=== PATIENT | male | born 1945 | race Caucasian/White ===

== ENCOUNTER 2022-01-28 20:15 | Emergency (ER) | payer MEDICARE, SELFPAY ==
[2022-01-28] VITALS (13 sets, daily range): BP systolic 109–168; BP diastolic 69–82; PULSE 80–107; RESP 15–26; TEMP 37–37.9; O2SAT 95–99
--- NOTE | ~2022-01-28 | CT_ITS ---
EXAMINATION: CTA brain carotid DATE: 01/28/2022 22:15 INDICATION: Left arm weakness. TECHNIQUE: Computed tomographic angiography (CTA) of the head was performed without and with 100 mL O mnipaque-350 intravenous contrast. CTA of the neck was performed with intravenous contrast. Automated exposure control and iterative reconstruction technique were employed. The dose-length product was 1 084.10 mGy-cm. Maximum intensity projection and volume rendered 3D-reconstructions were created by rashawn heck technologist on a separate workstation. COMPARISON: Head CT 01/28/2022 FINDINGS: HEAD CTA: There is no intracranial hemorrhage, acute infarction, or abnormal intracranial mass lesion . The ventricles are normal in size. There is mucosal thickening in the paranasal sinuses. The orbits are normal. There is a small right mastoid effusion. Right vertebral artery is dominant. There is no significant stenosis of basilar artery or the posterior cerebral arteries. The posterior communicati ng arteries are normal. There is no significant stenosis of the intracranial internal carotid arterie s or anterior or middle cerebral arteries. 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 NECK CTA: There is mild emphysema. There are no pathologically enlarged lymph nodes. There is no sign ificant stenosis of the vertebral arteries. There is plaque in the proximal internal carotid arteries . There is 0% stenosis of the proximal right internal carotid artery relative to normal distal artery lumen diameter (NASCET criteria). There is 23% stenosis of the proximal left internal carotid artery relative to normal distal artery lumen diameter. There is severe cervical spondylosis. IMPRESSION: 1. 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 2. 0% stenosis of the proximal right internal carotid artery relative to normal distal artery lumen d iameter (NASCET criteria). 3. 23% stenosis of the proximal left internal carotid artery relative to normal distal artery lumen d iameter. 4. Mild emphysema. Reviewed, dictated and finalized at location A. SURVEYING SURVEY WORKER IMPRESSION: 1. 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 2. 0% stenosis of the proximal right internal carotid artery relative to normal distal artery lumen diameter (NASCET criteria). 3. 23% stenosis of the proximal left internal carotid artery relative to normal distal artery lumen diameter. 4. Mild emphysema.
--- NOTE | ~2022-01-28 | CT_ITS ---
EXAMINATION: CT brain wo con DATE: 01/28/2022 20:38 INDICATION: left-sided weakness. RIGHT FRONTAL HEADACHE. . TECHNIQUE: Computed tomography (CT) of the head was performed without intravenous contrast. The mA wa s adjusted according to patient size. Iterative reconstruction technique was employed. The dose-lengt h product was 605.33 mGy-cm. COMPARISON: None FINDINGS: No acute intracranial hemorrhage or extra-axial fluid collection. No hydrocephalus, mass, or herniation. No acute ischemic infarct. Unremarkable dural venous sinus attenuation. No acute osseous abnormality. Mucosal thickening and mild aerated secretions in the right maxillary sinus. Trace right mastoid effu letha. Mucosal thickening in the ethmoid air cells. The remaining aerated spaces are clear. Moderate atrophy and chronic white matter change. Atherosclerotic intracranial calcification. IMPRESSION: No acute intracranial process. Right maxillary sinus findings may reflect acute sinusitis in the appr opriate clinical context. Trace right mastoid effusion. Reviewed, dictated and finalized at location K. LY ASSISTANT IMPRESSION: No acute intracranial process. Right maxillary sinus findings may reflect acute sinusitis in the appropriate clinical context. Trace right mastoid effusion.
--- NOTE | 2022-01-28 20:21 | ECG_ITS ---
Measurements Intervals [place] Rate: 90 P: 61 OK: 157 QRS: -35 QRSD: 81 T: 48 QT: 361 QTc: 444 Interpretive Statements SINUS RHYTHM ATRIAL AND VENTRICULAR PREMATURE COMPLEXES LEFT AXIS DEVIATION INCOMPLETE RIGHT BUNDLE BRANCH BLOCK LOW QRS VOLTAGE IN PRECORDIAL LEADS BASELINE ARTIFACT- I, II, III, AVR, AVL, AVF, V1-V6 BORDERLINE ECG NO PREVIOUS ECG AVAILABLE FOR COMPARISON Electronically Signed On 01-29-2022 6:49:12 [employer] GRINDER by Don Silvestre D.O.
--- NOTE | 2022-01-28 20:41 | ED.NEUROSD ---
HPI - Neuro Symptoms/Deficit General Chief Complaint: Suspected CVA Stated Complaint: Neuro Symptoms Time Seen by Provider: 01/28/22 20:19 Source: patient, EMS and RN notes reviewed Mode of arrival: EMS Limitations: no limitations History of Present Illness Onset (ago): unknown ( sometime this morning after breakfast) Timing confirmed by: other ( girlfriend) Location: left arm History of same: No Severity: moderate Quality: weak, tingling and constant Relieving factors: none Exacerbating factors: none Context: gradual onset On Anticoagulants: No Associated symptoms: headaches Treatments Prior to Arrival: none Related Data Home Medications Medication Instructions Recorded Confirmed allopurinol 300 mg tablet 300 mg PO DAILY 01/28/22 01/29/22 amlodipine 10 mg tablet 10 mg PO DAILY 01/28/22 01/29/22 atorvastatin 80 mg tablet 80 mg PO HS 01/28/22 01/29/22 clopidogrel 75 mg tablet 75 mg PO DAILY 01/28/22 01/29/22 enalapril maleate 20 mg tablet 40 mg PO DAILY 01/28/22 01/29/22 metoprolol succinate 50 mg 25 mg PO DAILY 01/28/22 01/29/22 tablet,extended release 24 hr omeprazole 40 mg capsule,delayed 40 mg PO DAILY 01/28/22 01/29/22 release tamsulosin 0.4 mg capsule 0.8 mg PO DAILY 01/28/22 01/29/22 aspirin 81 mg tablet 81 mg PO DAILY 01/29/22 01/29/22 Allergies Allergy/AdvReac Type Severity Reaction Status Date / Time Penicillins Allergy Unknown Verified 01/28/22 21:04 Review of Systems Review of Systems: All systems reviewed & are unremarkable except as noted in HPI and below PMFSH Past Medical History Medical History BPH (benign prostatic hyperplasia) Coronary artery disease CVA (cerebral vascular accident) GERD (gastroesophageal reflux disease) Gout Hyperlipidemia Hypertension Surgical History Surgical History Stented coronary artery Family History Family History Other Unknown family medical history Social History Social History Smoking packs per day: 1 Smoking cigarettes per day: 20.0 Smoking status: Current every day smoker Tobacco type: cigarettes Alcohol intake: current Drinks per week: 21 Alcohol use details: 2 beers daily and 2 whiskys daily Substance use: never Substance use type: does not use Spiritual care concerns: No Exam Const: General: cooperative, healthy appearing, comfortable, no acute distress, alert, awake and Physically active Nutritional Appearance: average body habitus Orientation/consciousness: patient oriented x3 Limitations: no limitations HENMT: Head: normal to inspection and normocephalic Ears: hearing grossly normal bilaterally and external ears normal Face/Nose/Sinus: Normal external nose present and Abnormal external nose present Mouth: Yes Normal oral and palatal mucosa present, Yes tongue normal and Yes moist mucous membranes Throat: uvula midline Eyes: General: appearance normal, both eyes and all related structures Eyelids: eyelids normal Conjunctivae: conjunctivae normal Sclera: sclerae normal Pupils: Equal, round and reactive pupils present EOM: EOMs intact bilaterally Neck: Neck: normal visual inspection, no lymphadenopathy, trachea midline, supple and other ( No nuchal rigidity) Carotids: normal carotid upstroke and no bruits Resp: Effort & Inspection: normal respiratory effort and able to speak in complete sentences Auscultation: clear to auscultation bilaterally Cardio: Rate: regular rate Rhythm: regular rhythm Heart sounds: no murmurs GI: Inspection: normal to inspection GI Palp: Yes Soft to palpation and No Tenderness to palpation present (GI) Auscultation: normal bowel sounds Back/Spine/Pelvis: Cervical Spine: cervical muscular tenderness (right C3-4), cervical spasm (right) and Cer
[2022-01-28] MEDS: ASPIRIN 81 MG CHEWABLE TABLET 324 MG PO (21:05)
[2022-01-28 21:10] LABS: Basophils Absolute Auto 0.02 K/mm3 (0.00-0.10); Basophils Percent Auto 0.2 % (0.0-1.0); Eosinophils Absolute Auto 0.03 K/mm3 (0.02-0.50); Eosinophils Percent Auto 0.4 % (1.0-6.0); Hematocrit 28.3 % (37.0-46.0); Hemoglobin 9.7 g/dL (12.4-15.3); Immature Granulocyte Absolute 0.02 K/mm3 (0.00-0.00); Immature Granulocyte Percent A 0.2 % (0.0-0.0); Lymphocytes Absolute Auto 1.13 K/mm3 (1.10-4.50); Lymphocytes Percent Auto 13.2 % (18.0-42.0); Mean Corpuscular HGB Conc 34.3 g/dL (32.0-36.0); Mean Corpuscular Hemoglobin 31.5 pg (27.0-31.0); Mean Corpuscular Volume 91.9 fL (78.0-102.0); Mean Platelet Volume 9.4 fl (8.7-11.0); Monocytes Absolute Auto 0.66 K/mm3 (0.10-0.90); Monocytes Percent Auto 7.7 % (2.0-11.0); Neutrophils Absolute Auto 6.7 K/mm3 (1.7-7.2); Neutrophils Percent Auto 78.3 % (50.0-70.0); Platelet Count Result 242 K/mm3 (150-420); Red Blood Count 3.08 M/mm3 (4.70-6.10); Red Cell Distribution Width 14.6 % (11.6-14.4); White Blood Count 8.5 K/mm3 (4.8-10.8)
[2022-01-28 21:24] LABS: Partial Thromboplastin Time 26.2 SEC (23.90-30.70)
[2022-01-28 21:27] LABS: Alanine Aminotransferase 8 U/L (16-63); Albumin Level 3.4 g/dL (3.4-5.0); Alkaline Phosphatase 75 U/L (46-116); Anion Gap 13 mmol/L (8-16); Aspartate Amino Transferase 35 U/L (15-37); Bilirubin,Total 0.4 mg/dL (0.00-1.00); Blood Urea Nitrogen 9 mg/dL (7-18); Calcium 8.5 mg/dL (8.5-10.1); Carbon Dioxide 25 mmol/L (21-32); Chloride 95 mmol/L (98-108); Estimated Glomerular Filt Rate > 60; Glucose 116 mg/dL (70-99); Osmolality Calculated 275 mOsm/kg (285-295); Potassium 2.9 mmol/L (3.5-5.1); Sodium 133 mmol/L (136-145); Total Protein 6.6 g/dL (6.4-8.2); Troponin I 40.2 ng/L (0.00-60.4)
[2022-01-28 21:37] LABS: Lactic Acid Reflex 1.1 mmol/L (0.4-2.0)
[2022-01-28] MEDS: KETOROLAC 30 MG/ML VIAL (*BKC) IV PUSH (21:42)
[2022-01-28] MEDS: LORazepam INJ (*CRX) 2 MG/ML VIAL IV PUSH (22:00)
--- NOTE | 2022-01-28 22:00 | PC.NURSE ---
Call received fro information technology technician that pt is having seizure, call placed to ERP, order obtained for Ativan, Upon arriving to [place], pt is postictal, has snoring respirations, Dr Posada in to assess, ativan given as per order. Per information technology technician, pt had seizure lasting approx 30sec.
[2022-01-28 22:12] LABS: Appearance Urine Clear (Clear); Bilirubin Urine Negative (Negative); Blood Urine Negative (Negative); Glucose Urine UA Negative (Negative); Ketones Urine 1+ (Negative); Leukocyte Esterase Ur Negative LEU/UL (Negative); Nitrate Urine Negative (Negative); Protein Urine 1+ (Negative); Urobilinogen Urine 0.2 mg/dL (0.2-1.0)
[2022-01-28 22:22] LABS: Add Urine Microscopic? YES; Color Urine Light Yellow (Yellow); RBC Urine 0-2 /hpf (0-2); WBC Urine 0-3 /hpf (0-3)
--- NOTE | 2022-01-28 22:22 | PC.NURSE ---
ERP phones RN and orders a 40mEq of Potassium in 1L of 0.9% NSS to run at 100mls/hr. RN reviews the order by reading back to ERP. ERP confirms order.
[2022-01-28] MEDS: KCL 20 MEQ/SW 100 ML 100 ML 50 MEQ IVPB (22:35)
--- NOTE | 2022-01-28 22:41 | PC.NURSE ---
Call placed to [facility] for neurologist, spoke to maynor Webber. Dr Diana hickman for neuro, will awit call back.
--- NOTE | 2022-01-28 22:54 | PC.NURSE ---
Call back from Maxime Webber. and call back from Dr Ortega, hospitalist, speaking to Dr Posada, accepts for transfer. Order received that Dr Ortiz would like Keppra 750mg IVPB given before transfer. ERP informed.
--- NOTE | 2022-01-28 23:00 | PC.NURSE ---
Pt remains somewhat sedated, is able to awaken to name and verbal stimulation. VSS, Monitor shows SR. Call back from Lawanda candelario bed assignment for report.
--- NOTE | 2022-01-28 23:25 | PC.NURSE ---
Call paged for [facility] for pt transfer, report to [facility] given, pt remains stable, sleeping, no distress noted, no further seizure activity.
--- NOTE | 2022-01-28 23:56 | PC.NURSE ---
Pt remains confused a t this time, trying to take off his clothes, will follow some commands but is more confused, VSS, report to EMS for transfer given.
--- NOTE | 2022-02-09 14:05 | PC.NURSE ---
final blood culture results x2 : no growth after 5 days. no action needed
== END 2022-01-28 23:57 | disposition short-term general hospital (02) ==
PROVIDERS: Emergency Provider Emergency Medicine
DX: I63.9 Cerebral infarction, unspecified (principal); R56.9 Unspecified convulsions; E87.6 Hypokalemia; I25.10 Atherosclerotic heart disease of native coronary artery without angina pectoris; K21.9 Gastro-esophageal reflux disease without esophagitis; E78.5 Hyperlipidemia, unspecified; I10 Essential (primary) hypertension; F17.200 Nicotine dependence, unspecified, uncomplicated
CPT/HCPCS: 36415; 70450; 70496; 70498; 80053; 81001; 83605; 84484; 85025; 85610; 85730; 87040; 93005; 96365; 96367; 96375; 99285; A9270; J1885; J1953; J2060; J3480; Q9967

== ENCOUNTER 2022-01-29 00:33 | Observation (INO) | payer MEDICARE, SELFPAY ==
[2022-01-29] VITALS (12 sets, daily range): BP systolic 103–143; BP diastolic 57–99; PULSE 61–86; RESP 16–20; TEMP 36.3–36.8; O2SAT 97–100; BMI 24.5
--- NOTE | 2022-01-29 | ECHO_ITS ---
Patient Info Name: Marcus Weller Age: 77 years : 1945 Gender: Male Ht: 69 in Wt: 165 lbs BSA: 1.92 m2 HR: 90 bpm BP: 103 / 57 mmHg Exam Date: 01/29/2022 1:25 PM Exam Location: [facility] Pulmonary Patient Status: Outpatient Admit Date: 01/29/2022 Staff Ordering Physician: Maricel Her MD Life Skills Coordinator: Fawad Salazar, MALIK, RT Attending Provider: Hannah Ortega DO Exam Type: CA echo doppler w bubble study Study Info Complete two-dimensional, color flow and Doppler transthoracic echocardiogram is performed. Summary 1. Complete two-dimensional, color flow and Doppler transthoracic echocardiogram is performed. 2. Left ventricular systolic function is normal, estimated at 50-55%. 3. There is mildly increased left ventricular wall thickness. 4. The left ventricular diastolic function is grade I diastolic dysfunction. 5. Right ventricular systolic function is normal. 6. The interatrial septum appears to be aneurysmal. No color flow is seen across the septum. Bubble study is negative. 7. The posterior mitral annulus has severe calcification. 8. There is trace mitral valve regurgitation. 9. There is mild to moderate tricuspid valve regurgitation. Left Ventricle Left ventricular chamber dimension is normal. Left ventricular systolic function is normal, estimated at 50-55%. There is mildly increased left ventricular wall thickness. The left ventricular diastolic function is grade I diastolic dysfunction. Global longitudinal strain is -14 %. Right Ventricle Right ventricular chamber dimension is normal. Right ventricular systolic function is normal. Left Atria Left atrial chamber dimension is normal. Right Atria Right atrial chamber dimension is normal. Atrial Septum The interatrial septum appears to be aneurysmal. No color flow is seen across the septum. Bubble study is negative. Aortic Valve The aortic valve is not well visualized. There is no aortic valve stenosis. There is no aortic valve regurgitation. There is mild aortic valve calcification. Pulmonic Valve The pulmonic valve is not well visualized. Mitral Valve The posterior mitral annulus has severe calcification. The mitral valve has thickened leaflets. There is no mitral valve stenosis. There is trace mitral valve regurgitation. Tricuspid Valve The tricuspid valve leaflets are normal. There is no significant tricuspid valve stenosis. There is mild to moderate tricuspid valve regurgitation. Pericardium/Pleural There is no pericardial effusion. Inferior Vena Cava Normal inferior vena cava with >50% collapse upon inspiration consistent with normal right atrial pressure. Aorta The aortic root size at the sinus of Valsalva is normal. Left Ventricular Outflow Tract Name Value Normal LVOT 2D LVOT Diameter 2.0 cm LVOT Doppler LVOT Peak Gradient 6 mmHg LVOT Mean Gradient 3 mmHg LVOT VTI 27 cm LVOT VTI/AV VTI Ratio 0.9 LVOT Stroke Volume 86 ml LVOT CO
--- NOTE | ~2022-01-29 | MR_ITS ---
. EXAMINATION: MR brain/brain stem wo/w con DATE: 01/29/2022 10:44 INDICATION: Left hemiparesis. Seizure. TECHNIQUE: Magnetic resonance imaging (MRI) of the brain and brainstem was performed without and with 15 mL MultiHance intravenous contrast. COMPARISON: Head CTA 01/28/2022 FINDINGS: There are scattered areas of nonspecific increased T2-weighted signal intensity in the cere bral white matter, which is within normal limits for the patient's age. There is no intracranial hemo rrhage, acute infarction, or abnormal intracranial mass lesion. The ventricles are normal in size. Th e orbits are normal. There is mucosal thickening in the paranasal sinuses. There is a trace right mas toid effusion. IMPRESSION: 1. Normal aging brain. 2. The small aneurysm seen on the recent CTA is not visible by MRI. Reviewed, dictated and finalized at location A. [employer]
--- NOTE | 2022-01-29 00:38 | ADMGEN ---
This patient, Marcus Weller, was admitted to Medical Room 250-01. Patient/family oriented to hospital policies and general routines including ID bracelet, bed and alarms, visiting hours, pain management, procedures, bathroom and other care routines, personal items, smoking policy, room service/diet, and visiting hours. Information on how to activate the Rapid Response Team has been discussed. Patient/Family are encouraged to report perceived risks to care and to ask questions if they do not understand what they are told or what they should do.
--- NOTE | 2022-01-29 01:55 | PM.IMHP ---
H&P: HPI History of Present Illness Date/Time: 01/29/22 01:55 Chief Complaint: Left-sided weakness Narrative: Patient is a 77-year-old male with past medical history of CAD, GERD, BPH, essential hypertension, hyperlipidemia, gout, possible history of CVA presents to ED with complaints of left-sided weakness. I saw patient after having a seizure and receiving 2 mg IV Ativan, he was unable to provide any history at this time. History is obtained through chart review. Family notes last known well early 01/28/2022. Progressively got weaker and question left sign prompting him to come to the ED for further evaluation. History is limited as patient is unable to participate considering his somnolence. In the ED: I discussed with ED provider and patient appeared to have left gaze preference, left-sided weakness, left arm contracture. CT head, CTA head and neck all negative for acute finding. While obtaining CT imaging patient had a witnessed seizure and given 2 mg IV Ativan. Patient has no seizure history. Neurology was consulted recommendation for brain MRI, Keppra 750 mg IV, transfer to [facility] for [facility]. Patient was found to have hypokalemia potassium 2.9 given 40 mg IV potassium. For the presumed stroke patient was given 324 aspirin. Patient to be admitted for observation for acute seizure secondary to possible CVA. Review of Systems Review of Systems: Unable to obtain due to patient somnolent after ativan PMFSH Past Medical History Medical History BPH (benign prostatic hyperplasia) Coronary artery disease CVA (cerebral vascular accident) GERD (gastroesophageal reflux disease) Gout Hyperlipidemia Hypertension Surgical History Surgical History Stented coronary artery Family History Family History Other Unknown family medical history Social History Social History Smoking packs per day: 1 Smoking cigarettes per day: 20.0 Smoking status: Current every day smoker Tobacco type: cigarettes Alcohol intake: current Drinks per week: 21 Alcohol use details: 2 beers daily and 2 whiskys daily Substance use: never Substance use type: does not use Spiritual care concerns: No Meds Home Medications and Allergies Home Medications Medication Instructions Recorded Confirmed Type allopurinol 300 mg tablet 300 mg PO DAILY 01/28/22 01/29/22 History amlodipine 10 mg tablet 10 mg PO DAILY 01/28/22 01/29/22 History atorvastatin 80 mg tablet 80 mg PO HS 01/28/22 01/29/22 History clopidogrel 75 mg tablet 75 mg PO DAILY 01/28/22 01/29/22 History enalapril maleate 20 mg tablet 40 mg PO DAILY 01/28/22 01/29/22 History metoprolol succinate 50 mg 25 mg PO DAILY 01/28/22 01/29/22 History tablet,extended release 24 hr omeprazole 40 mg capsule,delayed 40 mg PO DAILY 01/28/22 01/29/22 History release tamsulosin 0.4 mg capsule 0.8 mg PO DAILY 01/28/22 01/29/22 History aspirin 81 mg tablet 81 mg PO DAILY 01/29/22 01/29/22 History Allergies Allergy/AdvReac Type Severity Reaction Status Date / Time Penicillins Allergy Unknown Verified 01/28/22 21:04 Vital Signs Vital Signs - 24 hr 01/29/22 00:34 Temperature 36.7 C Pulse Rate 86 Respiratory Rate 18 Blood Pressure 129/99 H Pulse Oximetry 99 Exam Narrative: - GENERAL: Frail thin male in no acute distress. - EYES: EOMI. Anicteric. - HENT: Dry oral mucosa - LUNGS: Clear to auscultation bilaterally, no wheezing, rhonchi, or rales. - CARDIOVASCULAR: Regular rate and rhythm. - ABDOMEN: Soft, non-tender and non-distended. - EXTREMITIES: No edema. Peripheral pulses 2+. - NEUROLOGIC: Essential tremor when trying to move blanket to cover himself. appears to be moving all extremities, difficult to asse
[2022-01-29] MEDS: SODIUM CHLORIDE 0.9% IV 1,000 ML 100 ML IV CONT (02:34)
[2022-01-29 05:39] LABS: Lactic Acid Reflex 0.7 mmol/L (0.7-2.0)
[2022-01-29 05:40] LABS: Basophils Percent Auto 0.4 % (0.2-1.2); Eosinophils Percent Auto 0.5 % (0-4.4); Hematocrit 26.8 % (42.0-52.0); Hemoglobin 9.2 g/dL (14.0-18.0); Immature Granulocyte Absolute 0.03 K/mm3 (0.00-0.031); Immature Granulocyte Percent A 0.4 % (0-0.5); Lymphocytes Percent Auto 26.1 % (18.3-44.2); Mean Corpuscular HGB Conc 34.3 g/dl (32-36); Mean Corpuscular Volume 90.2 fl (80-100); Mean Platelet Volume 9.7 fl (7.4-10.4); Monocytes Absolute Auto 0.9 K/mm3 (0.1-0.6); Monocytes Percent Auto 11.8 % (2.6-8.5); Neutrophils Absolute Auto 4.4 K/mm3 (1.3-6.7); Neutrophils Percent Auto 60.8 % (45.5-73.1); Platelet Count Result 220 k/mm3 (150-375); Red Blood Count 2.97 M/mm3 (4.6-6.20); Red Cell Distribution Width 14.6 % (11.5-14.5); White Blood Count 7.3 K/mm3 (4.5-10.0)
[2022-01-29 05:49] LABS: LDL Cholesterol Direct 58 mg/dL
[2022-01-29 05:53] LABS: Alanine Aminotransferase 21 U/L (6-50); Albumin Level 3.4 g/dL (3.5-5.1); Alkaline Phosphatase 54 U/L (38-126); Anion Gap 8 mmol/L (8-16); Aspartate Amino Transferase 55 U/L (17-59); Bilirubin,Total 0.5 mg/dL (0.2-1.3); Blood Urea Nitrogen 8 mg/dL (9-20); Calcium 8.4 mg/dL (8.4-10.2); Carbon Dioxide 22 mmol/L (22-30); Chloride 99 mmol/L (98-107); Cholesterol 134 mg/dL (0-200); Estimated CRCL calculation 79 ml/min; Estimated Glomerular Filt Rate > 60; Glucose 98 mg/dL (65-110); HDL Direct 53 mg/dL; Magnesium 0.7 mg/dL (1.6-2.3); Potassium 3.1 mmol/L (3.4-5.0); Sodium 129 mmol/L (137-145); Triglycerides 83 mg/dL (<150)
--- NOTE | 2022-01-29 08:17 | WPDNEURCNPN ---
Assessment and Plan Assessment and plan (1) Left-sided weakness: Code(s): R53.1 - Weakness Status: Acute (2) Seizure disorder as sequela of cerebrovascular accident: Code(s): I69.398 - Other sequelae of cerebral infarction; G40.909 - Epilepsy, unspecified, not intractable, without status epilepticus Status: Acute (3) Smoker: Code(s): F17.200 - Nicotine dependence, unspecified, uncomplicated Status: Acute (4) HLD (hyperlipidemia): Code(s): E78.5 - Hyperlipidemia, unspecified Status: Acute (5) HTN (hypertension): Code(s): I10 - Essential (primary) hypertension Status: Acute (6) CAD (coronary artery disease): Code(s): I25.10 - Atherosclerotic heart disease of [place] coronary artery without angina pectoris Status: Acute Plan Marcus Weller is a 77 year old male with a history of CAD, GERD, BPH, HTN, HLD who presented on 01/28 initially due to left upper extremity weakness, who developed focal seizure while in the emergency room. Seizure could be secondary to stroke. Would recommend complete stroke work-up given patients risk factors. - MRI brain, surface echo w/ bubble study - Check HgbA1c and Lipid panel - Continue ASA 81mg and Plavix 75mg - Start Keppra 500mg BID - Discussed importance of smoking cessation Consult date: 01/29/22 Time Seen: 08:17 Reason for consult: Stroke, seizure HPI: Marcus Weller is a 77 year old male with a history of CAD, GERD, BPH, HTN, HLD who presented on 01/28 initially due to left upper extremity weakness. Patient's last well known is unclear, but sometime on 01/28. He developed left arm tingling and weakness. His family encouraged him to go the the emergency department. His initial blood pressure was in the 160s systolic and EKG showed sinus rhythm. CT was negative for acute process and CTA showed no stenosis in the R ICA but 23% stenosis in the L ICA, but otherwise no occlusion. While in CT patient had a seizure described as left gaze deviation with left upper extremity clonic movement. He was given Ativan 2mg IV. Afterwards he was post-ictal, but about an hour later he became more responsive. Neurology was consulted and he was given a dose of Keppra 750mg IV. Patient is on Asa 81mg and Plavix 75mg as well as Atorvastatin 80mg. He is a daily smoker. There is no prior history of seizure in this patient nor does he have a family history of seizures. Patient does not have any recollection of the events that occurred yesterday. Today he feels pretty close to his baseline. Review of Systems Constitutional: Constitutional: Reports no additional constitutional complaints Eyes: Eyes: Reports no additional eye complaints ENT: Reports system reviewed and no additional complaints, except as documented Cardiovascular: Cardiovascular: Reports no additional cardiovascular complaints Respiratory: Respiratory: Reports no additional respiratory complaints Gastrointestinal: Gastrointestinal: Reports no additional gastrointestinal complaints Genitourinary: Genitourinary: Reports no additional male genitourinary complaints Musculoskeletal: Musculoskeletal: Reports no additional musculoskeletal complaints Integumentary/Breasts: Skin/Breast: Reports system reviewed and no additional complaints, except as docu Neurologic: Reports as per HPI Psychiatric: Psychiatric: Reports no additional psychiatric complaints PMFSH Past Medical History Medical History BPH (benign prostatic hyperplasia) Coronary artery disease CVA (cerebral vascular accident) GERD (gastroesophageal reflux disease) Gout Hyperlipidemia Hypertension Surgical History Surgical History Stented coronary artery Family History Family History Other Unknown family medical history Social History Social Histor
[2022-01-29] MEDS: POTASSIUM CHLORIDE INJ 40 MEQ in SODIUM CHLORIDE 0.9% IV 500 ML 130 MEQ IVPB (08:32)
[2022-01-29] MEDS: ENOXAPARIN 40 MG/0.4 ML SYRINGE SUB-Q (08:33)
[2022-01-29] MEDS: TAMSULOSIN HCL 0.4 MG CAPSULE 0.8 MG PO (08:34)
[2022-01-29] MEDS: ASPIRIN 81 MG ENTERIC TABLET PO (08:34)
[2022-01-29] MEDS: allopurinoL 300 MG TABLET PO (08:34)
[2022-01-29] MEDS: CLOPIDOGREL BISULFATE 75 MG TABLET PO (08:35)
[2022-01-29] MEDS: PANTOPRAZOLE 40 MG TABLET PO ×2 (08:35→17:03)
[2022-01-29] MEDS: levETIRAcetam 500MG/NACL 100ML 500 MG/100 ML BAG 400 MG IVPB ×2 (08:52→20:30)
--- NOTE | 2022-01-29 09:22 | PM.IMPN ---
Progress Note: A&P Assessment and Plan (1) Seizure disorder as sequela of cerebrovascular accident: Code(s): I69.398 - Other sequelae of cerebral infarction; G40.909 - Epilepsy, unspecified, not intractable, without status epilepticus Status: Acute Assessment and Plan: Errol wilson neurology input (2) Left-sided weakness: Code(s): R53.1 - Weakness Status: Acute Assessment and Plan: workup pending aspirin and Plavix Subjective Date/time seen: 01/29/22 09:22 improved Exam Narrative: - GENERAL: Frail thin male in no acute distress. - EYES: EOMI. Anicteric. - HENT: Dry oral mucosa - LUNGS: Clear to auscultation bilaterally, no wheezing, rhonchi, or rales. - CARDIOVASCULAR: Regular rate and rhythm. - ABDOMEN: Soft, non-tender and non-distended. - EXTREMITIES: No edema. Peripheral pulses 2+. - NEUROLOGIC: Essential tremor when trying to move blanket to cover himself. appears to be moving all extremities, difficult to assess as patient is very somnolent after receiving Ativan - PSYCHIATRIC: Sleeping, arousable, unable to assess orientation, did not follow commands - SKIN: No rashes or lesions. Warm. Objective Data Vital Signs Vital Signs: Vital Signs - 24 hr 01/29/22 00:34 01/29/22 03:50 01/29/22 04:13 Temperature 98.1 F 98.2 F Pulse Rate 86 65 Respiratory Rate 18 18 Blood Pressure 129/99 H 103/57 L Pulse Oximetry 99 97 Oxygen Delivery Room Air 01/29/22 04:00 Temperature Pulse Rate 61 Respiratory Rate Blood Pressure Pulse Oximetry Oxygen Delivery Intake/Output Intake/Output: Intake & Output 01/26/22 01/27/22 01/28/22 01/29/22 23:59 23:59 23:59 23:59 Output Total 300 Balance -300 Meds/Results Medications: Active Medications Generic Name Dose Route Start Last Admin Trade Name Freq PRN Reason Stop Dose Admin Acetaminophen 650 mg 01/29/22 01:51 Acetaminophen 325 Mg Tablet PO Q4H PRN Mild Pain (1-3) or Fever Hydrocodone Bitart/Acetaminophen 1 tab 01/29/22 01:51 Hydrocodone/Acetaminophen (*Crx) 5-325 Mg Tablet PO Q4H PRN Moderate Pain (4-6) Al Hydrox/Mg Hydrox/Simethicone 30 ml 01/29/22 01:51 Mag Hydrox/Al Hydrox/Simeth 30 Ml Udc PO QID PRN Dyspepsia Allopurinol 300 mg 01/29/22 08:00 01/29/22 08:34 Allopurinol 300 Mg Tablet PO 300 mg DAILY@0800 RASHAD Administration Aspirin 81 mg 01/29/22 09:00 01/29/22 08:34 Aspirin 81 Mg Enteric Tablet PO 81 mg QAM RASHAD Administration Atorvastatin Calcium 80 mg 01/29/22 02:00 01/29/22 02:44 Atorvastatin 40 Mg Tablet PO Not Given HS RASHAD Clopidogrel Bisulfate 75 mg 01/29/22 09:00 01/29/22 08:35 Clopidogrel Bisulfate 75 Mg Tablet PO 75 mg DAILY RASHAD Administration Enoxaparin Sodium 40 mg 01/29/22 09:00 01/29/22 08:33 Enoxaparin 40 Mg/0.4 Ml Syringe SUB-Q 40 mg DAILY RASHAD Administration Sodium Chloride 1,000 mls @ 100 mls/hr 01/29/22 01:50 01/29/22 02:34 Normal Saline Iv IV CONT 01/29/22 21:49 100 mls/hr .Q10H RASHAD Administration Potassium Chloride 40 meq/ 520 mls @ 130 mls/hr 01/29/22 07:45 01/29/22 08:32 Sodium Chloride IVPB 01/29/22 11:44 130 mls/hr ONCE ONE Administration Levetiracetam 500 mg in 100 mls @ 400 mls/hr 01/29/22 09:00 01/29/22 08:52 Keppra Iv IVPB 400 mls/hr Q12HR RASHAD Administration Lorazepam 2 mg 01/29/22 01:02 Lorazepam Inj (*Crx) 2 Mg/Ml Vial IV PUSH Q2H PRN Seizure Activity Magnesium Hydroxide 30 ml 01/29/22 01:51 Magnesium Hydroxide Susp 30 Ml Udc PO DAILY PRN Constipation Naloxone HCl 0.1 mg 01/29/22 01:51 Naloxone Hcl 0.4 Mg/Ml Vial IV PUSH Q2M PRN Opiate Reversal Ondansetron HCl 4 mg 01/29/22 01:51 Ondansetron Inj 4 Mg/2 Ml Vial IV PUSH Q6H PRN Nausea And Vomiting Pantoprazole Sodium 40 mg 01/29/22 09:00 01/29/22 08:35 Pantoprazole 40 Mg Tablet PO 40 mg
--- NOTE | 2022-01-29 09:32 | PCSTNOTE ---
Please refer to the Bedside Swallow Evaluation in the EMR. Please note, silent aspiration cannot be ruled out at bedside.
[2022-01-29] MEDS: ATORVASTATIN 40 MG TABLET 80 MG PO (20:29)
[2022-01-30] VITALS (8 sets, daily range): BP systolic 106–170; BP diastolic 64–73; PULSE 61–102; RESP 16–20; TEMP 36.2–36.6; O2SAT 97–100
--- NOTE | 2022-01-30 05:24 | PC.NURSE ---
This RN supervised orientee Ainsley Duran and her documentation for this shift.
[2022-01-30 08:15] LABS: Anion Gap 7 mmol/L (8-16); Blood Urea Nitrogen 6 mg/dL (9-20); Carbon Dioxide 26 mmol/L (22-30); Chloride 101 mmol/L (98-107); Estimated CRCL calculation 90 ml/min; Estimated Glomerular Filt Rate > 60; Glucose 94 mg/dL (65-110); Potassium 2.9 mmol/L (3.4-5.0); Sodium 134 mmol/L (137-145)
[2022-01-30] MEDS: levETIRAcetam 500MG/NACL 100ML 500 MG/100 ML BAG 400 MG IVPB ×2 (08:23→20:11)
[2022-01-30] MEDS: PANTOPRAZOLE 40 MG TABLET PO ×2 (08:24→16:32)
[2022-01-30] MEDS: ASPIRIN 81 MG ENTERIC TABLET PO (08:24)
[2022-01-30] MEDS: TAMSULOSIN HCL 0.4 MG CAPSULE 0.8 MG PO (08:24)
[2022-01-30] MEDS: allopurinoL 300 MG TABLET PO (08:24)
[2022-01-30] MEDS: ENOXAPARIN 40 MG/0.4 ML SYRINGE SUB-Q (08:24)
[2022-01-30] MEDS: CLOPIDOGREL BISULFATE 75 MG TABLET PO (08:24)
--- NOTE | 2022-01-30 10:56 | PM.IMPN ---
Progress Note: A&P Assessment and Plan (1) Seizure disorder as sequela of cerebrovascular accident: Code(s): I69.398 - Other sequelae of cerebral infarction; G40.909 - Epilepsy, unspecified, not intractable, without status epilepticus Status: Acute Assessment and Plan: Errol appreciate neurology input await plan from Neurology. Patient is in much more alert today. PT/OT (2) Left-sided weakness: Code(s): R53.1 - Weakness Status: Acute Assessment and Plan: aspirin and Plavix and statin workup for CVA Is essentially negative Subjective Date/time seen: 01/30/22 10:56 much more alert today. Tolerating a diet Exam Narrative: - GENERAL: Frail thin male in no acute distress. - EYES: EOMI. Anicteric. - HENT: Dry oral mucosa - LUNGS: Clear to auscultation bilaterally, no wheezing, rhonchi, or rales. - CARDIOVASCULAR: Regular rate and rhythm. - ABDOMEN: Soft, non-tender and non-distended. - EXTREMITIES: No edema. Peripheral pulses 2+. - NEUROLOGIC: Essential tremor when trying to move blanket to cover himself. appears to be moving all extremities, difficult to assess as patient is very somnolent after receiving Ativan - PSYCHIATRIC: Sleeping, arousable, unable to assess orientation, did not follow commands - SKIN: No rashes or lesions. Warm. Objective Data Vital Signs Vital Signs: Vital Signs - 24 hr 01/29/22 11:33 01/29/22 12:13 01/29/22 12:00 Temperature 97.8 F Pulse Rate 83 67 Respiratory Rate 20 Blood Pressure 107/57 L Pulse Oximetry 99 Oxygen Delivery Room Air 01/29/22 14:30 01/29/22 16:00 01/29/22 19:59 Temperature 97.4 F L 97.6 F Pulse Rate 70 67 65 Respiratory Rate 16 18 Blood Pressure 118/61 137/69 Pulse Oximetry 99 100 Oxygen Delivery 01/29/22 20:00 01/29/22 20:00 01/29/22 23:46 Temperature 97.5 F L Pulse Rate 66 62 Respiratory Rate 18 Blood Pressure 143/65 H Pulse Oximetry 99 Oxygen Delivery Room Air 01/30/22 00:00 01/30/22 04:00 01/30/22 04:00 Temperature 97.2 F L Pulse Rate 61 78 66 Respiratory Rate 20 Blood Pressure 161/72 H Pulse Oximetry 100 Oxygen Delivery Intake/Output Intake/Output: Intake & Output 01/27/22 01/28/22 01/29/22 01/30/22 23:59 23:59 23:59 23:59 Intake Total 1400 1530 Output Total 1425 1400 Balance -25 130 Meds/Results Medications: Active Medications Generic Name Dose Route Start Last Admin Trade Name Freq PRN Reason Stop Dose Admin Acetaminophen 650 mg 01/29/22 01:51 Acetaminophen 325 Mg Tablet PO Q4H PRN Mild Pain (1-3) or Fever Hydrocodone Bitart/Acetaminophen 1 tab 01/29/22 01:51 Hydrocodone/Acetaminophen (*Crx) 5-325 Mg Tablet PO Q4H PRN Moderate Pain (4-6) Al Hydrox/Mg Hydrox/Simethicone 30 ml 01/29/22 01:51 Mag Hydrox/Al Hydrox/Simeth 30 Ml Udc PO QID PRN Dyspepsia Allopurinol 300 mg 01/29/22 08:00 01/30/22 08:24 Allopurinol 300 Mg Tablet PO 300 mg DAILY@0800 RASHAD Administration Aspirin 81 mg 01/29/22 09:00 01/30/22 08:24 Aspirin 81 Mg Enteric Tablet PO 81 mg QAM RASHAD Administration Atorvastatin Calcium 80 mg 01/29/22 02:00 01/29/22 20:29 Atorvastatin 40 Mg Tablet PO 80 mg HS RASHAD Administration Clopidogrel Bisulfate 75 mg 01/29/22 09:00 01/30/22 08:24 Clopidogrel Bisulfate 75 Mg Tablet PO 75 mg DAILY RASHAD Administration Enoxaparin Sodium 40 mg 01/29/22 09:00 01/30/22 08:24 Enoxaparin 40 Mg/0.4 Ml Syringe SUB-Q 40 mg DAILY RASHAD Administration Levetiracetam 500 mg in 100 mls @ 400 mls/hr 01/29/22 09:00 01/30/22 08:23 Keppra Iv IVPB 400 mls/hr Q12HR RASHAD Administration Lorazepam 2 mg 01/29/22 01:02 Lorazepam Inj (*Crx) 2 Mg/Ml Vial IV PUSH Q2H PRN Seizure Activity Magnesium Hydroxide 30 ml 01/29/22 01:51 Magnesium Hydroxide Susp 30 Ml Udc PO DAILY PRN Constipation Naloxone HCl 0.1
[2022-01-30] MEDS: HYDROcodone/acetaminophen (*CRX) 5-325 MG TABLET 1 TAB PO (16:36)
[2022-01-30] MEDS: IBUPROFEN 400 MG TABLET PO (18:43)
[2022-01-30] MEDS: ATORVASTATIN 40 MG TABLET 80 MG PO (20:12)
[2022-01-31] VITALS: PULSE 75
[2022-01-31] MEDS: LORazepam INJ (*CRX) 2 MG/ML VIAL IV PUSH (02:49)
--- NOTE | 2022-01-31 02:52 | PC.NURSE ---
WALKED INTO ROOM PTS LEFT SIDE JERKING, PT RESTLESS, ABLE TO TALK AND MOVE EXTREMETIES BUT CONTINUES TO MAKE JERKING MOVEMENTS ATIVAN GIVEN
[2022-01-31 02:56] VITALS: BP 147/67; PULSE 98; RESP 16; TEMP 36.8; O2SAT 98
--- NOTE | 2022-01-31 03:07 | PC.NURSE ---
PTS LEFT LEG CONTINUES TO TWITCH, DR WONG NOTIFIED, NO ORDERS RECEIVED, WILL MONITOR. PT CONTINUES TO ANSWER QUESTIONS AND MOVE ALL EXTREMITIES
--- NOTE | 2022-01-31 03:15 | PC.NURSE ---
RESTING QUIETLY NO TWITCHING NOTED
[2022-01-31 04:00] VITALS: PULSE 72
[2022-01-31 04:01] VITALS: BP 156/63; PULSE 71; RESP 18; TEMP 36.7; O2SAT 97
[2022-01-31 08:00] VITALS: PULSE 68; RESP 18; O2SAT 97
[2022-01-31] MEDS: allopurinoL 300 MG TABLET PO (08:29)
[2022-01-31] MEDS: PANTOPRAZOLE 40 MG TABLET PO (08:29)
[2022-01-31] MEDS: CLOPIDOGREL BISULFATE 75 MG TABLET PO (08:29)
[2022-01-31] MEDS: ASPIRIN 81 MG ENTERIC TABLET PO (08:29)
[2022-01-31] MEDS: levETIRAcetam 500MG/NACL 100ML 500 MG/100 ML BAG 400 MG IVPB (08:29)
[2022-01-31] MEDS: ENOXAPARIN 40 MG/0.4 ML SYRINGE SUB-Q (08:29)
[2022-01-31] MEDS: TAMSULOSIN HCL 0.4 MG CAPSULE 0.8 MG PO (08:29)
[2022-01-31 12:00] VITALS: PULSE 86
--- NOTE | 2022-01-31 12:37 | PM.DS ---
DS: Admitting Diagnosis Discharge Date 01/31/2022 Admitting Diagnosis Seizure DS: Summary Hospital Course Hospital Course: Patient is a 77-year-old male with past medical history of CAD, GERD, BPH, essential hypertension, hyperlipidemia, gout, possible history of CVA presents to ED with complaints of left-sided weakness.? Patient had a seizure in the ED.? Family notes last known well early 01/28/2022.? Progressively got weaker and question left sign prompting him to come to the ED for further evaluation.? patient appeared to have left gaze preference, left-sided weakness, left arm contracture.? CT head, CTA head and neck all negative for acute finding.? ? While obtaining CT imaging patient had a witnessed seizure and given 2 mg IV Ativan.? Patient has no seizure history.? Neurology was consulted recommendation for brain MRI, Keppra 750 mg IV, transfer to [facility] for Neurology.? Patient was found to have hypokalemia potassium 2.9 given 40 mg IV potassium.? For the presumed stroke patient was given 324 aspirin.? Neurology was consulted and recommended brain MRI. Brain MRI was negative for any acute findings. Patient was started on Keppra 500 mg IV b.i.d.. Echo was obtained. 2D echo 1. Complete two-dimensional, color flow and Doppler transthoracic echocardiogram is performed. ? 2. Left ventricular systolic function is normal, estimated at 50-55%. ? 3. There is mildly increased left ventricular wall thickness. ? 4. The left ventricular diastolic function is grade I diastolic dysfunction. ? 5. Right ventricular systolic function is normal. ? 6. The interatrial septum appears to be aneurysmal. No color flow is seen across the septum. Bubble study is negative. ? 7. The posterior mitral annulus has severe calcification. ? 8. There is trace mitral valve regurgitation. ? 9. There is mild to moderate tricuspid valve regurgitation. Patient has not had any seizures overnight. He is clinically stable. Discussed with Neurology this morning and recommended patient could be discharged home with oral Keppra b.i.d.. Time Spent with Patient Time attestation: Total time spent providing and/or coordinating discharge services: Exam Narrative: - GENERAL: Frail thin male in no acute distress. - EYES: EOMI. Anicteric. - HENT: Dry oral mucosa - LUNGS: Clear to auscultation bilaterally, no wheezing, rhonchi, or rales. - CARDIOVASCULAR: Regular rate and rhythm. - ABDOMEN: Soft, non-tender and non-distended. - EXTREMITIES: No edema. Peripheral pulses 2+. - NEUROLOGIC: Essential tremor when trying to move blanket to cover himself. appears to be moving all extremities, difficult to assess as patient is very somnolent after receiving Ativan - PSYCHIATRIC: Sleeping, arousable, unable to assess orientation, did not follow commands - SKIN: No rashes or lesions. Warm. Discharge Plan Discharge Consulting providers: Andrea Richard Discharging Clinician: Raymundo Reyez Anticipated Discharge Date/Time: 01/31/22 11:34 Patient Disposition: Home, Self-Care Activity: no driving Diet: heart healthy Patient Instructions: Antibiotic Form, Blood Thinners (DC) Stand Alone Forms: General Discharge Information Follow-up/Referrals: Andrea Richard MD [Physician] - Discharge Medications: New levetiracetam [Keppra] 500 mg tablet 500 mg PO BID Qty: 60 0RF Continued atorvastatin 80 mg Tablet 80 mg PO HS metoprolol succinate 50 mg Tablet Extended Release 24 Hr 25 mg PO DAILY enalapril maleate 20 mg Tablet 40 mg PO DAILY clopidogrel 75 mg Tablet 75 mg PO DAILY omeprazole 40 mg Capsule,Delayed Release(Dr/Ec) 40 mg PO DAILY tamsulosin 0.4 mg Capsule 0.8 mg PO DAILY amlodipine 10 mg Tablet 10 mg PO DAILY allopurinol 300 mg Tablet 300 mg PO DAILY aspirin 81 mg Tablet 81 mg PO DAILY Date of admission: 01/29/22 00:33 Primary Care Provider: PHYSICIAN,BLOCK PLACER Admitting Provider: James
== END 2022-01-31 15:45 | disposition home or self-care (01) ==
PROVIDERS: Chiropractor; Admitting Provider Student in an Organized Health Care Education/Training Program; Visit Provider Hospitalist
DX: I69.398 Other sequelae of cerebral infarction (principal); G40.909 Epilepsy, unspecified, not intractable, without status epilepticus; R53.1 Weakness; M62.48 Contracture of muscle, other site; K21.9 Gastro-esophageal reflux disease without esophagitis; N40.0 Benign prostatic hyperplasia without lower urinary tract symptoms; I10 Essential (primary) hypertension; E78.5 Hyperlipidemia, unspecified; M10.9 Gout, unspecified; I07.1 Rheumatic tricuspid insufficiency; I34.81 Nonrheumatic mitral (valve) annulus calcification; F17.210 Nicotine dependence, cigarettes, uncomplicated; F10.90 Alcohol use, unspecified, uncomplicated; Z79.02 Long term (current) use of antithrombotics/antiplatelets; Z79.82 Long term (current) use of aspirin; Z79.899 Other long term (current) drug therapy
CPT/HCPCS: 36415; 70553; 80048; 80053; 80061; 83036; 83605; 83735; 85025; 92610; 93306; 96365; 96372; 96375; 96376; 97112; 97116; 97161; 97166; 97530; 97535; A9270; A9577; G0378; G0379; J1650; J1953; J2060; J3480; J7030; J7040

== ENCOUNTER 2022-02-03 08:38 | Inpatient (IN) | payer MEDICARE, OTHER, SELFPAY ==
[2022-02-03] VITALS (13 sets, daily range): BP systolic 130–154; BP diastolic 53–94; PULSE 60–92; RESP 28–36; TEMP 35.7–36.3; O2SAT 99–100; BMI 22.8
--- NOTE | ~2022-02-03 | XR_ITS ---
EXAMINATION: XR chest 1V portable Exam Date/Time: 02/03/2022 12:20 GROUTMAN HISTORY: short of breath Comparison: None available. RESULT: Lines, tubes, and devices: None. Lungs and pleura: Diffuse reticular opacities. No focal consolidation or large effusion. Cardiomediastinal silhouette: Mild aortic ectasia. Other: No acute osseous or upper abdominal finding. Degenerative changes in the spine. IMPRESSION: Pulmonary opacities may reflect senescent changes and/or mild interstitial edema. Reviewed, dictated and finalized at location K. TMAN IMPRESSION: Pulmonary opacities may reflect senescent changes and/or mild interstitial leighton tabor
--- NOTE | ~2022-02-03 | CT_ITS ---
EXAMINATION: CT brain wo con DATE: 02/05/2022 12:50 INDICATION: Left sided neglect. Confusion. TECHNIQUE: Computed tomography (CT) of the head was performed without intravenous contrast. The mA wa s adjusted according to patient size. Iterative reconstruction technique was employed. Exam dose: 60 5.33 mGy-cm total exam DLP. COMPARISON: 01/29/2022 MRI brain/brainstem 01/28/2022 CT brain and CTA brain carotid FINDINGS: Vertebral artery and prominent bilateral carotid siphon internal carotid artery calcificati ons. There is nonspecific diminished attenuation of the cerebral white matter, likely due to chronic small vessel ischemic changes. There is central and more prominent cortical cerebral atrophy. There is cerebellar atrophy. No intracranial mass lesion or hemorrhage, midline shift or mass effect is detected. No cerebrovascular accident is evident. CT is not sensitive for detection of hyperacute ischemic infa rct. MR brain with diffusion imaging would be more sensitive. No subdural or epidural hematoma is detected. No orbital mass lesion. There is prominent mucoperiosteal thickening of the right maxillary sinus and mild right ethmoid sept al soft tissue thickening. Partial opacification of right mastoid air cells. Left mastoid air cells a re normally developed and aerated. No fracture or bone destruction of the cranial vault. IMPRESSION: Cerebral atherosclerosis and chronic small vessel ischemic changes of the cerebral white matter Cerebral and cerebellar atrophy No acute intracranial finding is noted; CT is not sensitive for hyperacute ischemic cerebrovascular a ccident Reviewed, dictated and finalized at Location A. Reviewed, dictated and finalized at location B. [facility] STRAIGHTENER IMPRESSION: Cerebral atherosclerosis and chronic small vessel ischemic changes of the cerebral white matter Cerebral and cerebellar atrophy No acute intracranial finding is noted; CT is not sensitive for hyperacute isch emic cerebrovascular accident
[2022-02-03 10:14] LABS: Alveolar/Arterial O2 Gradient 87.3 mmHg; Base Excess ABG -2.4 mEq/l (+/-2.0); Fractional Inspired Oxygen 32 %; HCO3 ABG 22.5 mEq/l (22.0-26.0); Oxygen Content ABG 15.4 %vol (16.0-22.0); Oxygen Saturation ABG 97.1 % (95.0-100.0); Oxyhemoglobin 95.1 % THb (90.0-100.0); PCO2 ABG 39.2 mmHg (35.0-45.0); PO2 FiO2 Ratio Arterial Blood 2.97 %; Total Hemoglobin 11.4 g/dL (12.0-18.0); pH ABG 7.377 (7.350-7.450)
[2022-02-03 10:27] LABS: Device NASAL CANNULA; Modified Allen's Test Pass; Site Drawn LEFT RADIAL
--- NOTE | 2022-02-03 10:47 | PM.IMHP ---
H&P: HPI History of Present Illness Date/Time: 02/03/22 10:47 Chief Complaint: Status epilepticus Narrative: 77yo male with history of CAD, GERD, BPH, HTN, gout, possible CVA and seizures transferred from an outside hospital for status epilepticus. Reyna was hospitalized here of on 01/28/22 for left sided weakness. He had hypokalemia. 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 Brain MRI showing no acute findings. He was treated with Keppra. Neurology was following. Reyna was discharged home on 01/31/22 on Keppra 500mg BID. Patient transferred from outside hospital this morning for seizures. He arouses but unable to provide history. Records from the outside hospital show: Patient presents to ED from home with for seizure like activity. Shaking began on the evening of presentation with left leg and arm tremors. He was diaphoretic. COVID test negative. WBC 10K, Hgb 8.3. Sodium 130, potassium 3.0, bicarb 18 with AG 17, Cr 1.6, TP 4.8 and Albumin 2.4. UDS positive for benzodiazepines. CT head showing no acute findings. CXR clear. He received Ativan IV a total of 14mg, Keppra 1500mg (at 2319 02/03), and thiamine 100mg IV. BP stable except he dropped to 84/53 at 2300 02/02. Discussed with friend in contact list. Patient discharged on Saturday, 01/31. The following morning, patient was very depressed with crying spells. That evening, he became more confused like walking into the closet to look for the bathroom. He did fall in the bathroom merit system director hours on 02/02. Left arm laceration but no other injuries. No LOC. Day of admission, he was having a better day. He was more aware and was eating well. That evening around 9pm, she noted the patient having jerking motion left leg and arm. Patient was brought to the ED by family. He has been compliant with the Keppra. No alcohol since last discharge. No other new medications except two Aleve for pain. hx of 2-3 drinks per night normally but last drink was 01/27. Review of Systems Review of Systems: ROS unobtainable: Yes unobtainable due to mental status PMFSH Past Medical History Medical History BPH (benign prostatic hyperplasia) Coronary artery disease CVA (cerebral vascular accident) GERD (gastroesophageal reflux disease) Gout Hyperlipidemia Hypertension Surgical History Surgical History Stented coronary artery Family History Family History Other Unknown family medical history Social History Social History Smoking packs per day: 1 Smoking cigarettes per day: 20.0 Smoking status: Current every day smoker Alcohol intake: current Drinks per week: 28 Alcohol use details: 2 beers daily and 2 whiskys daily Substance use: never Substance use type: does not use Spiritual care concerns: No Meds Home Medications and Allergies Home Medications Medication Instructions Recorded Confirmed Type allopurinol 300 mg tablet 300 mg PO DAILY 01/28/22 02/03/22 History amlodipine 10 mg tablet 10 mg PO DAILY 01/28/22 02/03/22 History atorvastatin 80 mg tablet 80 mg PO HS 01/28/22 02/03/22 History clopidogrel 75 mg tablet 75 mg PO DAILY 01/28/22 02/03/22 History enalapril maleate 20 mg tablet 40 mg PO DAILY 01/28/22 02/03/22 History metoprolol succinate 50 mg 25 mg PO DAILY 01/28/22 02/03/22 History tablet,extended release 24 hr omeprazole 40 mg capsule,delayed 40 mg PO DAILY 01/28/22 02/03/22 History release tamsulosin 0.4 mg capsule 0.8 mg PO DAILY 01/28/22 02/03/22 History aspirin 81 mg tablet 81 mg PO DAILY 01/29/22 02/03/22 History levetiracetam 500 mg tablet 500 mg PO BID #60 tabs 01/31/22 02/03/22 Rx (Keppra) Allergies Allergy/AdvReac Type Severity Reaction Status Date / Time Penicillins Sony
--- NOTE | 2022-02-03 10:53 | ADMGEN ---
This patient, Marcus Weller, was admitted to IMU Room 205-01 at 0835. Patient/family oriented to hospital policies and general routines including ID bracelet, bed and alarms, visiting hours, pain management, procedures, bathroom and other care routines, personal items, smoking policy, room service/diet, and visiting hours. Information on how to activate the Rapid Response Team has been discussed. Patient/Family are encouraged to report perceived risks to care and to ask questions if they do not understand what they are told or what they should do.
[2022-02-03] MEDS: levETIRAcetam 500MG/NACL 100ML 500 MG/100 ML BAG 400 MG IVPB (11:21)
[2022-02-03] MEDS: DEXTROSE 5%/0.9% SOD CHL 1,000 ML 100 ML IV CONT ×2 (11:22→21:38)
[2022-02-03] MEDS: THIAMINE HCL 200 MG/2 ML VIAL 100 MG IV PUSH (11:23)
[2022-02-03] MEDS: FOLIC ACID 1 MG/0.2 ML INJ IV PUSH (11:24)
--- NOTE | 2022-02-03 11:44 | WPDNEURCNPN ---
Assessment and Plan Assessment and plan (1) Status epilepticus: Code(s): G40.901 - Epilepsy, unspecified, not intractable, with status epilepticus Status: Acute (2) Seizure disorder as sequela of cerebrovascular accident: Code(s): I69.398 - Other sequelae of cerebral infarction; G40.909 - Epilepsy, unspecified, not intractable, without status epilepticus Status: Acute (3) Left-sided weakness: Code(s): R53.1 - Weakness Status: Acute Plan Mr. Weller is a 77 year old male with a history of Marcus Weller is a 77 year old male with a history of CAD, GERD, BPH, HTN, HLD presenting with status epilepticus. Etiology of breakthrough seizure unclear. Unlikely to be alcohol withdrawal since last drink was > 72 hrs ago. Considering etiology of status epilepticus as unprovoked vs provoked by infection. Patient is still not back to baseline, which may be a combination of medication affect/post-ictal state. - Increased Keppra to 1000mg BID - Recommend checking UA if not done at outside facility - Recommend MRI brain w/wo if patient if no improvement in mental status Consult date: 02/03/22 Time Seen: 11:45 Reason for consult: Seizure HPI: Marcus Weller is a 77 year old male with a history of history of CAD, GERD, BPH, HTN, HLD presenting due to status epilepticus. Patient presented initially to an outside hospital due to concerns for seizure-like activity, described as tremulous movements of the left upper and lower extremity. Patient was taken to [facility] where the emergency room physician described ongoing seizure like activity for total of 30-40 minutes. He was given a total of 8mg of Ativan and Keppra 1500mg load, with cessation of the seizure. CT head was negative for acute process. Labs were unrevealing. Patient was transferred to [place] for further care. Patient initially presented on 01/28 initially due to left upper extremity weakness. CT was negative for acute process and CTA showed no stenosis in the R ICA but 23% stenosis in the L ICA, but otherwise no occlusion. While in CT patient had a seizure described as left gaze deviation with left upper extremity clonic movement. He was given Ativan 2mg IV. Afterwards he was post-ictal, but about an hour later he became more responsive. He was started on Keppra 500mg BID. MRI brain was negative for acute stroke. Patient somnolent this morning, unable to give any history. Review of Systems Review of Systems: ROS unobtainable: Yes unobtainable due to mental status PMFSH Past Medical History Medical History BPH (benign prostatic hyperplasia) Coronary artery disease CVA (cerebral vascular accident) GERD (gastroesophageal reflux disease) Gout Hyperlipidemia Hypertension Surgical History Surgical History Stented coronary artery Family History Family History Other Unknown family medical history Social History Social History Smoking packs per day: 1 Smoking cigarettes per day: 20.0 Smoking status: Current every day smoker Alcohol intake: current Drinks per week: 21 Alcohol use details: 2 beers daily and 2 whiskys daily Substance use: never Substance use type: does not use Spiritual care concerns: No Meds Home Medications and Allergies Home Medications Medication Instructions Recorded Confirmed Type allopurinol 300 mg tablet 300 mg PO DAILY 01/28/22 02/03/22 History amlodipine 10 mg tablet 10 mg PO DAILY 01/28/22 02/03/22 History atorvastatin 80 mg tablet 80 mg PO HS 01/28/22 02/03/22 History clopidogrel 75 mg tablet 75 mg PO DAILY 01/28/22 02/03/22 History enalapril maleate 20 mg tablet 40 mg PO DAILY 01/28/22 02/03/22 History metoprolol succinate 50 mg 25 mg PO DAILY 01/28/22 02/03/22 History
[2022-02-03 12:02] LABS: Basophils Absolute Auto 0.1 K/mm3 (0.0-0.1); Basophils Percent Auto 0.6 % (0.2-1.2); Eosinophils Absolute Auto 0.2 K/mm3 (0-0.3); Eosinophils Percent Auto 2.1 % (0-4.4); Hematocrit 30.1 % (42.0-52.0); Hemoglobin 10.3 g/dL (14.0-18.0); Immature Granulocyte Absolute 0.03 K/mm3 (0.00-0.031); Immature Granulocyte Percent A 0.3 % (0-0.5); Lymphocytes Absolute Auto 1.12 K/mm3 (0.9-3.2); Lymphocytes Percent Auto 12.8 % (18.3-44.2); Mean Corpuscular HGB Conc 34.2 g/dl (32-36); Mean Corpuscular Hemoglobin 31.7 pg (26-34); Mean Corpuscular Volume 92.6 fl (80-100); Mean Platelet Volume 9.7 fl (7.4-10.4); Monocytes Percent Auto 11.7 % (2.6-8.5); Neutrophils Absolute Auto 6.4 K/mm3 (1.3-6.7); Neutrophils Percent Auto 72.5 % (45.5-73.1); Platelet Count Result 209 k/mm3 (150-375); Red Blood Count 3.25 M/mm3 (4.6-6.20); Red Cell Distribution Width 14.8 % (11.5-14.5); White Blood Count 8.8 K/mm3 (4.5-10.0)
[2022-02-03 12:14] LABS: Alanine Aminotransferase 30 U/L (6-50); Albumin Level 3.5 g/dL (3.5-5.1); Alkaline Phosphatase 65 U/L (38-126); Anion Gap 10 mmol/L (8-16); Aspartate Amino Transferase 76 U/L (17-59); Bilirubin,Total 0.4 mg/dL (0.2-1.3); Blood Urea Nitrogen 12 mg/dL (9-20); Calcium 8.4 mg/dL (8.4-10.2); Carbon Dioxide 20 mmol/L (22-30); Chloride 103 mmol/L (98-107); Estimated CRCL calculation 76 ml/min; Estimated Glomerular Filt Rate > 60; Glucose 87 mg/dL (65-110); Magnesium 0.6 mg/dL (1.6-2.3); Potassium 3.1 mmol/L (3.4-5.0); Sodium 133 mmol/L (137-145)
[2022-02-03 13:11] LABS: Glucose Point of Care 106 mg/dl (65-105)
[2022-02-03 14:24] LABS: Appearance Urine Slightly Cloudy (Clear); Bilirubin Urine Negative (Negative); Blood Urine 3+ (Negative); Color Urine Yellow (Yellow); Glucose Urine UA Negative (Negative); Ketones Urine 1+ mg/dL (Negative); Leukocyte Esterase Ur Trace LEU/UL (Negative); Nitrate Urine Negative (Negative); Protein Urine Negative (Negative); Specific Grav Ur 1.015 (1.001-1.035); Urobilinogen Urine 0.2 mg/dL (<2.0); pH Urine 5.5 (5.0-9.0)
[2022-02-03 14:33] LABS: Mucus Urine Rare /lpf; RBC Urine >75 /hpf (0-2)
[2022-02-03 14:38] LABS: Add Urine Microscopic? YES
[2022-02-03 17:28] LABS: Creatine Kinase 1128 U/L (55-170)
[2022-02-03] MEDS: KCL 20 MEQ/SW 100 ML 100 ML 50 MEQ IVPB (18:04)
[2022-02-03] MEDS: MAGNESIUM SULFATE 3GM/D5W100ML 3 GM/100 ML BAG IVPB (18:06)
[2022-02-03 18:08] LABS: Glucose Point of Care 120 mg/dl (65-105)
[2022-02-03] MEDS: levETIRAcetam 1000MG/NACL100ML 1,000 MG/100 ML BAG 400 MG IVPB (21:42)
[2022-02-04] VITALS (15 sets, daily range): BP systolic 130–172; BP diastolic 60–80; PULSE 62–87; RESP 16–32; TEMP 36.3–37; O2SAT 99–100
[2022-02-04 00:08] LABS: Glucose Point of Care 125 mg/dl (65-105)
[2022-02-04 05:19] LABS: Basophils Percent Auto 0.6 % (0.2-1.2); Eosinophils Absolute Auto 0.2 K/mm3 (0-0.3); Eosinophils Percent Auto 2.7 % (0-4.4); Hematocrit 27.6 % (42.0-52.0); Hemoglobin 9.5 g/dL (14.0-18.0); Immature Granulocyte Absolute 0.03 K/mm3 (0.00-0.031); Immature Granulocyte Percent A 0.5 % (0-0.5); Lymphocytes Absolute Auto 0.87 K/mm3 (0.9-3.2); Lymphocytes Percent Auto 13.9 % (18.3-44.2); Mean Corpuscular HGB Conc 34.4 g/dl (32-36); Mean Corpuscular Hemoglobin 31.9 pg (26-34); Mean Corpuscular Volume 92.6 fl (80-100); Mean Platelet Volume 9.9 fl (7.4-10.4); Monocytes Absolute Auto 0.6 K/mm3 (0.1-0.6); Monocytes Percent Auto 9.1 % (2.6-8.5); Neutrophils Absolute Auto 4.6 K/mm3 (1.3-6.7); Neutrophils Percent Auto 73.2 % (45.5-73.1); Platelet Count Result 213 k/mm3 (150-375); Red Blood Count 2.98 M/mm3 (4.6-6.20); Red Cell Distribution Width 14.7 % (11.5-14.5); White Blood Count 6.2 K/mm3 (4.5-10.0)
[2022-02-04 05:38] LABS: Alanine Aminotransferase 31 U/L (6-50); Albumin Level 3.3 g/dL (3.5-5.1); Alkaline Phosphatase 73 U/L (38-126); Anion Gap 6 mmol/L (8-16); Aspartate Amino Transferase 66 U/L (17-59); Bilirubin,Total 0.4 mg/dL (0.2-1.3); Blood Urea Nitrogen 5 mg/dL (9-20); Calcium 7.9 mg/dL (8.4-10.2); Carbon Dioxide 25 mmol/L (22-30); Chloride 102 mmol/L (98-107); Creatine Kinase 571 U/L (55-170); Estimated CRCL calculation 103 ml/min; Estimated Glomerular Filt Rate > 60; Glucose 114 mg/dL (65-110); Magnesium 1.1 mg/dL (1.6-2.3); Phosphorus 2.1 mg/dL (2.5-4.5); Potassium 2.8 mmol/L (3.4-5.0); Sodium 133 mmol/L (137-145)
[2022-02-04] MEDS: MAGNESIUM SULF 4 GM/WATER100ML 4 GM/100 ML BAG IVPB (06:12)
[2022-02-04] MEDS: POTASSIUM CHLORIDE INJ 40 MEQ in SODIUM CHLORIDE 0.9% IV 500 ML 130 MEQ IVPB (09:10)
[2022-02-04] MEDS: SODIUM PHOSPHATE 20 MM in DEXTROSE 5% IN WATER 250 ML 50 MM IVPB (09:10)
[2022-02-04] MEDS: THIAMINE HCL 200 MG/2 ML VIAL 100 MG IV PUSH (09:11)
[2022-02-04] MEDS: PANTOPRAZOLE SODIUM IV 40 MG VIAL IV PUSH (09:11)
[2022-02-04] MEDS: FOLIC ACID 1 MG/0.2 ML INJ IV PUSH (09:11)
[2022-02-04] MEDS: levETIRAcetam 1000MG/NACL100ML 1,000 MG/100 ML BAG 400 MG IVPB ×2 (09:17→21:30)
[2022-02-04] MEDS: DEXTROSE 5%/0.9% SOD CHL 1,000 ML 100 ML IV CONT ×2 (09:18→21:30)
--- NOTE | 2022-02-04 10:20 | WPDNEUROPN ---
Progress Note: A&P Assessment and Plan (1) Status epilepticus: Code(s): G40.901 - Epilepsy, unspecified, not intractable, with status epilepticus Status: Acute (2) Encephalopathy: Code(s): G93.40 - Encephalopathy, unspecified Status: Acute Plan Mr. Weller is a 77 year old male with a history of Marcuskinjal Weller is a 77 year old male with a history of CAD, GERD, BPH, HTN, HLD presenting with status epilepticus. Etiology of breakthrough seizure unclear. Unlikely to be alcohol withdrawal since last drink was > 72 hrs ago. Considering etiology of status epilepticus as unprovoked. Mental status has improved since yesterday, although he still seems to have some confusion. - Increased Keppra to 1000mg BID - If no improvement in mental status, obtain MRI brain Subjective Date/time seen: 02/04/22 10:20 Interval history: Marcus Weller is a 77 year old male with a history of? history of CAD, GERD, BPH, HTN, HLD presenting due to status epilepticus. Patient presented initially to an outside hospital due to concerns for seizure-like activity, described as tremulous movements of the left upper and lower extremity. Patient was taken to [facility] where the emergency room physician described ongoing seizure like activity for total of 30-40 minutes. He was given a total of 8mg of Ativan and Keppra 1500mg load, with cessation of the seizure. CT head was negative for acute process. Labs were unrevealing. Patient was transferred to [place] for further care. Patient initially presented on 01/28 initially due to left upper extremity weakness. CT was negative for acute process and CTA showed no stenosis in the R ICA but 23% stenosis in the L ICA, but otherwise no occlusion. While in CT patient had a seizure described as left gaze deviation with left upper extremity clonic movement. He was given Ativan 2mg IV. Afterwards he was post-ictal, but about an hour later he became more responsive. He was started on Keppra 500mg BID. MRI brain was negative for acute stroke. No further seizures since admission. UA does not appear to be infectious. Patient seems to be better this morning. He does not remember why he was brought to the hospital. I discussed with him that his Keppra dose was increased due to the seizures and he asked if it was going to make him sneeze . Review of Systems Review of Systems: ROS unobtainable: Yes unobtainable due to mental status Exam Const: General: comfortable and no acute distress HENMT: Mouth: Yes moist mucous membranes Eyes: Pupils: Equal, round and reactive pupils present EOM: EOMs intact bilaterally Resp: Effort & Inspection: normal respiratory effort Auscultation: clear to auscultation bilaterally Cardio: Rate: regular rate Rhythm: regular rhythm GI: GI Palp: Yes Soft to palpation Auscultation: normal bowel sounds Skin: General skin exam: normal color Other: bruising of LUE Neuro: Other: AOx3, Pupils equal and reactive bilaterally, EOMI, face symmetric, able to follow commands appropriately, strength is symmetric bilaterally. Objective Data Vital Signs Vital Signs: Vital Signs - 24 hr 02/03/22 12:00 02/03/22 11:51 02/03/22 12:00 Temperature 35.7 C L Pulse Rate 69 64 Pulse Rate [Monitor] 64 Respiratory Rate 30 H Blood Pressure 151/81 H Pulse Oximetry 100 Oxygen Delivery Oxygen Flow Rate 02/03/22 12:00 02/03/22 12:00 02/03/22 14:00 Temperature Pulse Rate 76 Pulse Rate [Monitor] 64 Respiratory Rate Blood Pressure Pulse Oximetry 100 Oxygen Delivery Nasal Cannula Oxygen Flow Rate 1 02/03/22 16:00 02/03/22 16:56 02/03/22 16:00 Temperature 36.3 C L Pulse Rate 77 69 Pulse Rate [Monitor] 74 Respiratory Rate 32 H Blood Pressure 154/66 H 154/66 H Pulse Oximetry 100 100 Oxygen Delivery Room Air Oxygen Flow Rate 02/03/22 16:00 02/03/22 16:00 02/03/22 18:00 Temperature Pulse Rate 65 74
[2022-02-04 12:16] LABS: Glucose Point of Care 124 mg/dl (65-105)
--- NOTE | 2022-02-04 12:24 | PM.IMPN ---
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 No evidence of CVA by MRI. He was diagnosed with seizures and discharged home on Keppra. Patient presents back to an outside hospital for recurrent seizures/status epilepticus. He denies alcohol use. He has been compliant with his Keppra. He received Ativan IV as well as Keppra. Patient's symptoms resolved. He was transferred to [place]. Keppra continued and dose incresed to 1000mg IV Q12h. Mental status better. Neurology consulted. ST felt patietn could swallow safely. Seizure precautions. PT/OT. Correct electrolyte abnormalities. Start diet (2) Seizure: Code(s): R56.9 - Unspecified convulsions Status: Acute Assessment and Plan: New onset. Not related to withdrawal since no alcohol since last admission. 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 Related to new onset seizures? (4) ARMINDA (acute kidney injury): Code(s): N17.9 - Acute kidney failure, unspecified Status: Acute Assessment and Plan: Patient with a creatinine 1.6 at the outside hospital. He has a normal baseline creatinine. Acute kidney injury related to above. Cr today back to normal. Continue to follow. (5) Metabolic acidosis: Code(s): E87.20 - Acidosis, unspecified Status: Acute Assessment and Plan: Metabolic acidosis noted related to the seizures. Resolved. Continue IV fluids. (6) Hyponatremia: Code(s): E87.1 - Hypo-osmolality and hyponatremia Status: Acute Assessment and Plan: Sodium was low at the outside hospital. Repeat sodium 133. Follow (7) Hypokalemia: Code(s): E87.6 - Hypokalemia Status: Acute Assessment and Plan: Potassium was low at the outside hospital. Repeat was low and was replaces. Repeat potassium low again this morning at 2.8 and replacement ordered. Mag also low on admission and replacement ordered. Mag better but still low so will replace again today. (8) Alcoholism: Code(s): F10.20 - Alcohol dependence, uncomplicated Status: Acute Assessment and Plan: Family states patient drinks 2-3 alcohol drinks per night and sometimes more. Patient's last alcoholic drink was 1 week ago. Continue thiamine and folate. Continue CIWA protocol. (9) CAD (coronary artery disease): Code(s): I25.10 - Atherosclerotic heart disease of [place] coronary artery without angina pectoris Status: Acute Assessment and Plan: Patient has a history of coronary disease. Review and resume home med. (10) HTN (hypertension): Code(s): I10 - Essential (primary) hypertension Status: Acute Assessment and Plan: Blood pressure noted. Resume some home meds. Will follow. (11) Smoker: Code(s): F17.200 - Nicotine dependence, unspecified, uncomplicated Status: Acute Assessment and Plan: Educate patient about smoking cessation when able. Plan Rhabdomyolysis - related to seizures/status. Levels trending down. Follow. Anemia - Hgb noted. Add iron studies and B12/folate Subjective Date/time seen: 02/04/22 12:24 Interval history: 77yo male with history of CAD, GERD, BPH, HTN, gout, possible CVA and seizures transferred from an outside hospital for status epilepticus.? Patient more awake and alert but still groggy. He is oriented. He denies alcohol use since last discharge. He denies any new medications. He was compliant with his Keppra at home. He complains of back pain an
--- NOTE | 2022-02-04 13:13 | PCSTNOTE ---
Patient seen for bedside swallowing evaluation. He has been NPO for several days. Patient was given trials of thin liquid, nectar thickened liquid, pureed, and mixed consistency (diced fruit in juice). Delayed swallow trigger and reduced laryngeal elevation, but no signs of aspiration. Patient is weak overall and cognition is not intact at this time. Recommendation: pureed diet to advance to minced moist (level 5) at nursing discretion. Thin liquids. Follow swallowing precaution recommendations as posted in chart. No speech therapy recommended. Thank you for the referral of this patient.
[2022-02-04 14:27] LABS: Albumin Level 3.4 g/dL (3.5-5.1); Anion Gap 7 mmol/L (8-16); Blood Urea Nitrogen 3 mg/dL (9-20); Calcium 7.4 mg/dL (8.4-10.2); Carbon Dioxide 22 mmol/L (22-30); Chloride 103 mmol/L (98-107); Estimated CRCL calculation 103 ml/min; Estimated Glomerular Filt Rate > 60; Glucose 117 mg/dL (65-110); Magnesium 1.7 mg/dL (1.6-2.3); Potassium 3.1 mmol/L (3.4-5.0); Sodium 132 mmol/L (137-145)
[2022-02-04] MEDS: METOPROLOL SUCCINATE EXT REL 25 MG TABCR PO (14:46)
[2022-02-04] MEDS: CLOPIDOGREL BISULFATE 75 MG TABLET PO (14:47)
[2022-02-04] MEDS: ASPIRIN 81 MG CHEWABLE TABLET PO (14:47)
[2022-02-04 14:54] LABS: Iron 22 ug/dL (49-181)
[2022-02-04 15:03] LABS: Percent Iron Saturation 6 % (20-50)
[2022-02-04 17:03] LABS: Glucose Point of Care 120 mg/dl (65-105)
[2022-02-04 18:02] LABS: Glucose Point of Care 140 mg/dl (65-105)
[2022-02-04] MEDS: POTASSIUM CHLORIDE 20 MEQ TABLET.ER 40 MEQ PO (19:03)
[2022-02-04 20:16] LABS: Glucose Point of Care 132 mg/dl (65-105)
[2022-02-04] MEDS: ATORVASTATIN 40 MG TABLET 80 MG PO (21:31)
[2022-02-04] MEDS: MAGNESIUM OXIDE 200 MG TABLET PO (21:31)
[2022-02-05] VITALS (17 sets, daily range): BP systolic 152–168; BP diastolic 66–83; PULSE 59–104; RESP 12–20; TEMP 36.3–37.1; O2SAT 99–100; BMI 22.9
[2022-02-05 00:01] LABS: Glucose Point of Care 123 mg/dl (65-105)
[2022-02-05 05:10] LABS: Alanine Aminotransferase 31 U/L (6-50); Albumin Level 3.2 g/dL (3.5-5.1); Alkaline Phosphatase 74 U/L (38-126); Anion Gap 7 mmol/L (8-16); Aspartate Amino Transferase 54 U/L (17-59); Bilirubin,Total 0.4 mg/dL (0.2-1.3); Blood Urea Nitrogen 3 mg/dL (9-20); Calcium 7.3 mg/dL (8.4-10.2); Carbon Dioxide 23 mmol/L (22-30); Chloride 102 mmol/L (98-107); Estimated CRCL calculation 103 ml/min; Estimated Glomerular Filt Rate > 60; Glucose 113 mg/dL (65-110); Potassium 3.1 mmol/L (3.4-5.0); Sodium 132 mmol/L (137-145)
[2022-02-05 05:18] LABS: Hematocrit 26.8 % (42.0-52.0); Hemoglobin 9.1 g/dL (14.0-18.0); Mean Corpuscular Hemoglobin 31.3 pg (26-34); Mean Corpuscular Volume 92.1 fl (80-100); Mean Platelet Volume 9.7 fl (7.4-10.4); Platelet Count Result 231 k/mm3 (150-375); Red Blood Count 2.91 M/mm3 (4.6-6.20); Red Cell Distribution Width 15.1 % (11.5-14.5); White Blood Count 6.4 K/mm3 (4.5-10.0)
[2022-02-05 05:26] LABS: Creatine Kinase 274 U/L (55-170)
[2022-02-05] MEDS: CLOPIDOGREL BISULFATE 75 MG TABLET PO (08:26)
[2022-02-05] MEDS: POTASSIUM CHLORIDE 20 MEQ TABLET.ER 40 MEQ PO ×2 (08:26→16:02)
[2022-02-05] MEDS: ASPIRIN 81 MG CHEWABLE TABLET PO (08:26)
[2022-02-05] MEDS: TAMSULOSIN HCL 0.4 MG CAPSULE 0.8 MG PO (08:26)
[2022-02-05] MEDS: MAGNESIUM OXIDE 200 MG TABLET PO ×2 (08:26→21:16)
[2022-02-05] MEDS: METOPROLOL SUCCINATE EXT REL 25 MG TABCR PO (08:26)
[2022-02-05] MEDS: PANTOPRAZOLE SODIUM IV 40 MG VIAL IV PUSH (08:27)
[2022-02-05] MEDS: THIAMINE HCL 200 MG/2 ML VIAL 100 MG IV PUSH (08:27)
[2022-02-05] MEDS: DEXTROSE 5%/0.9% SOD CHL 1,000 ML 100 ML IV CONT (08:30)
[2022-02-05] MEDS: levETIRAcetam 1000MG/NACL100ML 1,000 MG/100 ML BAG 400 MG IVPB (08:31)
[2022-02-05] MEDS: ENOXAPARIN 40 MG/0.4 ML SYRINGE SUB-Q (08:32)
[2022-02-05] MEDS: FOLIC ACID 1 MG/0.2 ML INJ IV PUSH (08:32)
[2022-02-05] MEDS: FERROUS SULFATE 324 MG TABLET PO ×3 (08:33→16:02)
[2022-02-05] MEDS: ACETAMINOPHEN 325 MG TABLET 650 MG PO (10:02)
[2022-02-05 12:25] LABS: Glucose Point of Care 127 mg/dl (65-105)
[2022-02-05 12:52] LABS: Phosphorus 1.3 mg/dL (2.5-4.5); Potassium 3.8 mmol/L (3.4-5.0)
--- NOTE | 2022-02-05 15:31 | PM.IMPN ---
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 No evidence of CVA by MRI. He was diagnosed with seizures and discharged home on Keppra. Patient presented back to an outside hospital for recurrent seizures/status epilepticus. He denies alcohol use. He has been compliant with his Keppra. He received Ativan IV as well as Keppra IV and transferred back to [place]. Recovering as expected. Continue Keppra at higher dose but will change to oral route. Neurology consulted and apprecaite their input. ST felt patient could swallow safely. Seizure precautions. Continue PT/OT. Correct electrolyte abnormalities. (2) Seizure: Code(s): R56.9 - Unspecified convulsions Status: Acute Assessment and Plan: New onset. Not related to withdrawal since no alcohol since last admission. Related to electrolyte abnormalities? 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 (4) ARMINDA (acute kidney injury): Code(s): N17.9 - Acute kidney failure, unspecified Status: Acute Assessment and Plan: Patient with a creatinine 1.6 at the outside hospital. He has a normal baseline creatinine. Acute kidney injury related to above. Cr back to normal. Continue to follow. Stop IV fluids (5) Metabolic acidosis: Code(s): E87.20 - Acidosis, unspecified Status: Acute Assessment and Plan: Metabolic acidosis noted related to the seizures. Resolved. Okay to stop IV fluids. (6) Hyponatremia: Code(s): E87.1 - Hypo-osmolality and hyponatremia Status: Acute Assessment and Plan: Sodium was low at the outside hospital. Repeat sodium 132. Follow (7) Hypokalemia: Code(s): E87.6 - Hypokalemia Status: Acute Assessment and Plan: Potassium was low at the outside hospital. Repeat was low and was replaced. Repeat potassium low again. Continue to repalce until stable. On scheduled potassium now Mag also low on admission and replacement ordered. Mag still low so will replace again today. On scheduled mag now (8) Alcoholism: Code(s): F10.20 - Alcohol dependence, uncomplicated Status: Acute Assessment and Plan: Family states patient drinks 2-3 alcohol drinks per night and sometimes more. Patient's last alcoholic drink was 1 week ago. Continue thiamine and folate. Continue CIWA protocol. Educated about the benefit of abstaining from alcohol. (9) CAD (coronary artery disease): Code(s): I25.10 - Atherosclerotic heart disease of [place] coronary artery without angina pectoris Status: Acute Assessment and Plan: Patient has a history of coronary disease. Continue Toprol, ASA, plavix and lipitor (10) HTN (hypertension): Code(s): I10 - Essential (primary) hypertension Status: Acute Assessment and Plan: Blood pressure noted. Home meds resumed. Will follow for now. (11) Smoker: Code(s): F17.200 - Nicotine dependence, unspecified, uncomplicated Status: Acute Assessment and Plan: Patient was educated about the benefits of smoking cessation. Plan Rhabdomyolysis - related to seizures/status. Levels trending down. Follow. Anemia - Hgb noted. Iron studies consistent iron deficiency. Iron supplement started. Check stool guaiac. Subjective Date/time seen: 02/05/22 15:31 Interval history: 77yo male with history of CAD, GERD, BPH, HTN, gout, possible CVA and seizures transferred from an outside hospital for status epilepticus.? Patient
[2022-02-05] MEDS: MAGNESIUM SULFATE 3GM/D5W100ML 3 GM/100 ML BAG IVPB (15:57)
[2022-02-05] MEDS: POTASSIUM/PHOSPHORUS/SODIUM 1.5 GM PACKET 1 PACKET PO (15:58)
[2022-02-05 19:24] LABS: Folic Acid 19.1 ng/mL (2.76->20)
[2022-02-05 20:17] LABS: Glucose Point of Care 144 mg/dl (65-105)
[2022-02-05] MEDS: levETIRAcetam 500 MG TABLET 1000 MG PO (21:15)
[2022-02-05] MEDS: ATORVASTATIN 40 MG TABLET 80 MG PO (21:16)
[2022-02-06] VITALS (11 sets, daily range): BP systolic 105–171; BP diastolic 61–79; PULSE 55–81; RESP 16–20; TEMP 36.3–37; O2SAT 95–100
[2022-02-06 04:55] LABS: Hematocrit 28.8 % (42.0-52.0); Hemoglobin 9.6 g/dL (14.0-18.0); Mean Corpuscular HGB Conc 33.3 g/dl (32-36); Mean Corpuscular Hemoglobin 31.8 pg (26-34); Mean Corpuscular Volume 95.4 fl (80-100); Mean Platelet Volume 9.7 fl (7.4-10.4); Platelet Count Result 236 k/mm3 (150-375); Red Blood Count 3.02 M/mm3 (4.6-6.20); Red Cell Distribution Width 15.2 % (11.5-14.5); White Blood Count 5.9 K/mm3 (4.5-10.0)
[2022-02-06 05:12] LABS: Albumin Level 3.3 g/dL (3.5-5.1); Anion Gap 6 mmol/L (8-16); Blood Urea Nitrogen 2 mg/dL (9-20); Calcium 7.8 mg/dL (8.4-10.2); Carbon Dioxide 24 mmol/L (22-30); Chloride 104 mmol/L (98-107); Estimated CRCL calculation 87 ml/min; Estimated Glomerular Filt Rate > 60; Glucose 103 mg/dL (65-110); Magnesium 1.5 mg/dL (1.6-2.3); Phosphorus 1.9 mg/dL (2.5-4.5); Potassium 4.1 mmol/L (3.4-5.0); Sodium 134 mmol/L (137-145)
--- NOTE | 2022-02-06 08:26 | PM.IMPN ---
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 No evidence of CVA by MRI. He was diagnosed with seizures and discharged home on Keppra. Patient presented back to an outside hospital for recurrent seizures/status epilepticus. He denies alcohol use. He has been compliant with his Keppra. He received Ativan IV as well as Keppra IV and transferred back to [place]. Recovering as expected. Continue Keppra at higher dose but will change to oral route. Appreciate neuro consult Consider brain mri tomorrow if still confused (2) Seizure: Code(s): R56.9 - Unspecified convulsions Status: Acute Assessment and Plan: New onset. Not related to withdrawal since no alcohol since last admission. Related to electrolyte abnormalities? 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 (4) ARMINDA (acute kidney injury): Code(s): N17.9 - Acute kidney failure, unspecified Status: Acute Assessment and Plan: resolved (5) Metabolic acidosis: Code(s): E87.20 - Acidosis, unspecified Status: Acute Assessment and Plan: resolved (6) Hyponatremia: Code(s): E87.1 - Hypo-osmolality and hyponatremia Status: Acute Assessment and Plan: improving (7) Hypokalemia: Code(s): E87.6 - Hypokalemia Status: Acute Assessment and Plan: resolved, mag low, replete and recheck (8) Alcoholism: Code(s): F10.20 - Alcohol dependence, uncomplicated Status: Acute Assessment and Plan: Family states patient drinks 2-3 alcohol drinks per night and sometimes more. Patient's last alcoholic drink was 1 week ago. Continue thiamine and folate. Continue CIWA protocol. Educated about the benefit of abstaining from alcohol. (9) CAD (coronary artery disease): Code(s): I25.10 - Atherosclerotic heart disease of [place] coronary artery without angina pectoris Status: Acute Assessment and Plan: Patient has a history of coronary disease. Continue Toprol, ASA, plavix and lipitor (10) HTN (hypertension): Code(s): I10 - Essential (primary) hypertension Status: Acute Assessment and Plan: Blood pressure noted. Home meds resumed. Will follow for now. (11) Smoker: Code(s): F17.200 - Nicotine dependence, unspecified, uncomplicated Status: Acute Assessment and Plan: Patient was educated about the benefits of smoking cessation. (12) Hypomagnesemia: Code(s): E83.42 - Hypomagnesemia Status: Acute Plan Rhabdomyolysis - related to seizures/status. Levels trending down. Follow. Anemia - Hgb noted. Iron studies consistent iron deficiency. Iron supplement started. Check stool guaiac. DVT prophylaxis with SCDs GI prophylaxis not indicated Code status full code Subjective Date/time seen: 02/06/22 08:26 no o/n events, no f/c/n/v/d/cp/sob, no germain, vision changes, seizure activity. Review of Systems Review of Systems: All systems reviewed & are unremarkable except as noted in HPI and below Exam Narrative: General: Patient resting comfortably in bed, no acute distress HEENT: Atraumatic, normocephalic, mucous membranes moist CV: Regular rate and rhythm, S1, S2, no murmurs rubs or gallops noted Lungs: Clear to auscultation bilaterally, no rales or crackles noted, no wheezes, good air entry Abdomen: Soft, nontender, nondistended Extremities: Normal to inspection, no edema noted Skin: No rashes noted, no lesions or wou
[2022-02-06] MEDS: MAGNESIUM OXIDE 200 MG TABLET PO ×2 (08:49→20:22)
[2022-02-06] MEDS: levETIRAcetam 500 MG TABLET 1000 MG PO ×2 (08:49→20:22)
[2022-02-06] MEDS: PANTOPRAZOLE 40 MG TABLET PO (08:50)
[2022-02-06] MEDS: CLOPIDOGREL BISULFATE 75 MG TABLET PO (08:50)
[2022-02-06] MEDS: FOLIC ACID 1 MG TABLET PO (08:50)
[2022-02-06] MEDS: FERROUS SULFATE 324 MG TABLET PO ×3 (08:50→16:11)
[2022-02-06] MEDS: ASPIRIN 81 MG CHEWABLE TABLET PO (08:50)
[2022-02-06] MEDS: THIAMINE HCL 100 MG TABLET PO (08:50)
[2022-02-06] MEDS: POTASSIUM CHLORIDE 20 MEQ TABLET.ER PO ×2 (08:50→16:12)
[2022-02-06 08:51] LABS: Glucose Point of Care 121 mg/dl (65-105)
[2022-02-06] MEDS: TAMSULOSIN HCL 0.4 MG CAPSULE 0.8 MG PO (08:51)
[2022-02-06] MEDS: ENOXAPARIN 40 MG/0.4 ML SYRINGE SUB-Q (08:51)
[2022-02-06] MEDS: METOPROLOL SUCCINATE EXT REL 25 MG TABCR PO (08:51)
[2022-02-06] MEDS: MAGNESIUM SULF 4 GM/WATER100ML 4 GM/100 ML BAG IVPB (10:11)
[2022-02-06 12:02] LABS: Glucose Point of Care 124 mg/dl (65-105)
--- NOTE | 2022-02-06 12:55 | PC.NURSE ---
This patient, Marcus Weller, was transferred to [[id number] ] on 02/06/22 at 1255. Personal belongings sent with patient. Report given to [Jennifer ]. Appropriate documentation sent with patient.
--- NOTE | 2022-02-06 13:13 | PC.NURSE ---
This patient, Marcus Weller, was received from [ ] on 02/06/22 at 1313. Patient/family oriented to unit policies and routines
[2022-02-06 16:18] LABS: Glucose Point of Care 98 mg/dl (65-105)
[2022-02-06] MEDS: ATORVASTATIN 40 MG TABLET 80 MG PO (20:22)
[2022-02-07 06:00] VITALS: BP 124/86; PULSE 78; RESP 20; TEMP 36.2; O2SAT 100
[2022-02-07 08:20] LABS: Glucose Point of Care 99 mg/dl (65-105)
[2022-02-07] MEDS: POTASSIUM CHLORIDE 20 MEQ TABLET.ER PO ×2 (08:43→17:35)
[2022-02-07] MEDS: ASPIRIN 81 MG CHEWABLE TABLET PO (08:43)
[2022-02-07] MEDS: FOLIC ACID 1 MG TABLET PO (08:43)
[2022-02-07] MEDS: levETIRAcetam 500 MG TABLET 1000 MG PO ×2 (08:43→21:03)
[2022-02-07] MEDS: ENOXAPARIN 40 MG/0.4 ML SYRINGE SUB-Q (08:43)
[2022-02-07] MEDS: CLOPIDOGREL BISULFATE 75 MG TABLET PO (08:43)
[2022-02-07] MEDS: FERROUS SULFATE 324 MG TABLET PO ×3 (08:43→17:35)
[2022-02-07 08:44] VITALS: PULSE 62
[2022-02-07] MEDS: PANTOPRAZOLE 40 MG TABLET PO (08:44)
[2022-02-07] MEDS: METOPROLOL SUCCINATE EXT REL 25 MG TABCR PO (08:44)
[2022-02-07] MEDS: TAMSULOSIN HCL 0.4 MG CAPSULE 0.8 MG PO (08:44)
[2022-02-07] MEDS: THIAMINE HCL 100 MG TABLET PO (08:44)
[2022-02-07] MEDS: MAGNESIUM OXIDE 200 MG TABLET PO ×2 (08:44→21:03)
[2022-02-07 09:10] LABS: IFOB Positive Control Positive; Immunochemical Fecal Occult Bl Negative (N)
--- NOTE | 2022-02-07 09:21 | PM.IMPN ---
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 No evidence of CVA by MRI. He was diagnosed with seizures and discharged home on Keppra. Patient presented back to an outside hospital for recurrent seizures/status epilepticus. He denies alcohol use. He has been compliant with his Keppra. He received Ativan IV as well as Keppra IV and transferred back to [place]. Recovering as expected. Continue Keppra at higher dose but will change to oral route. suspect etiology to breakthrough seizure 2/2 low magnesium from ?PPI, stop protonic, continue to replete and monitor magnesium levels, start pepcid, anticipate full recovery (2) Seizure: Code(s): R56.9 - Unspecified convulsions Status: Acute Assessment and Plan: New onset. Not related to withdrawal since no alcohol since last admission. 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 (4) ARMINDA (acute kidney injury): Code(s): N17.9 - Acute kidney failure, unspecified Status: Acute Assessment and Plan: resolved (5) Metabolic acidosis: Code(s): E87.20 - Acidosis, unspecified Status: Acute Assessment and Plan: resolved (6) Hyponatremia: Code(s): E87.1 - Hypo-osmolality and hyponatremia Status: Acute Assessment and Plan: improving (7) Hypokalemia: Code(s): E87.6 - Hypokalemia Status: Acute Assessment and Plan: resolved, mag low, replete and recheck (8) Alcoholism: Code(s): F10.20 - Alcohol dependence, uncomplicated Status: Acute Assessment and Plan: Family states patient drinks 2-3 alcohol drinks per night and sometimes more. Patient's last alcoholic drink was 1 week ago. Continue thiamine and folate. Continue CIWA protocol. Educated about the benefit of abstaining from alcohol. CIWA = 3 this morning. (9) CAD (coronary artery disease): Code(s): I25.10 - Atherosclerotic heart disease of [place] coronary artery without angina pectoris Status: Acute Assessment and Plan: Patient has a history of coronary disease. Continue Toprol, ASA, plavix and lipitor (10) HTN (hypertension): Code(s): I10 - Essential (primary) hypertension Status: Acute Assessment and Plan: Blood pressure noted. Home meds resumed. Will follow for now. (11) Smoker: Code(s): F17.200 - Nicotine dependence, unspecified, uncomplicated Status: Acute Assessment and Plan: Patient was educated about the benefits of smoking cessation. (12) Hypomagnesemia: Code(s): E83.42 - Hypomagnesemia Status: Acute Assessment and Plan: Resolving, replete again today, anticipate discharge home tomorrow on oral magnesium Plan Rhabdomyolysis - related to seizures/status. Levels trending down. Follow. Anemia - Hgb noted. Iron studies consistent iron deficiency. Iron supplement started. Check stool guaiac. DVT prophylaxis with SCDs GI prophylaxis not indicated Code status full code Subjective Date/time seen: 02/07/22 09:21 Interval history: No overnight events noted. No chest pain or shortness of breath. No nausea, vomiting or diarrhea. No fevers or chills. Patient states feels back to normal today. No complaints. Review of Systems Review of Systems: 12 point review of systems was assessed and was negative except as noted in the HPI Exam Narrative: Gen
[2022-02-07 10:36] LABS: Basophils Absolute Auto 0.1 K/mm3 (0.0-0.1); Basophils Percent Auto 0.8 % (0.2-1.2); Eosinophils Absolute Auto 0.1 K/mm3 (0-0.3); Eosinophils Percent Auto 2.3 % (0-4.4); Hematocrit 28.8 % (42.0-52.0); Hemoglobin 9.7 g/dL (14.0-18.0); Immature Granulocyte Absolute 0.03 K/mm3 (0.00-0.031); Immature Granulocyte Percent A 0.5 % (0-0.5); Lymphocytes Absolute Auto 1.31 K/mm3 (0.9-3.2); Lymphocytes Percent Auto 21.6 % (18.3-44.2); Mean Corpuscular HGB Conc 33.7 g/dl (32-36); Mean Corpuscular Hemoglobin 31.1 pg (26-34); Mean Corpuscular Volume 92.3 fl (80-100); Mean Platelet Volume 9.4 fl (7.4-10.4); Monocytes Absolute Auto 0.7 K/mm3 (0.1-0.6); Monocytes Percent Auto 12.2 % (2.6-8.5); Neutrophils Absolute Auto 3.8 K/mm3 (1.3-6.7); Neutrophils Percent Auto 62.6 % (45.5-73.1); Platelet Count Result 286 k/mm3 (150-375); Red Blood Count 3.12 M/mm3 (4.6-6.20); Red Cell Distribution Width 15.1 % (11.5-14.5); White Blood Count 6.1 K/mm3 (4.5-10.0)
[2022-02-07 10:44] LABS: Alanine Aminotransferase 27 U/L (6-50); Albumin Level 3.6 g/dL (3.5-5.1); Alkaline Phosphatase 89 U/L (38-126); Anion Gap 6 mmol/L (8-16); Aspartate Amino Transferase 37 U/L (17-59); Bilirubin,Total 0.4 mg/dL (0.2-1.3); Blood Urea Nitrogen 6 mg/dL (9-20); Calcium 8.3 mg/dL (8.4-10.2); Carbon Dioxide 25 mmol/L (22-30); Chloride 99 mmol/L (98-107); Estimated CRCL calculation 63 ml/min; Estimated Glomerular Filt Rate > 60; Glucose 126 mg/dL (65-110); Potassium 4.4 mmol/L (3.4-5.0); Sodium 130 mmol/L (137-145)
[2022-02-07 10:45] LABS: Creatine Kinase 107 U/L (55-170); Magnesium 1.6 mg/dL (1.6-2.3)
[2022-02-07] MEDS: FAMOTIDINE 20 MG TABLET PO ×2 (11:21→21:03)
[2022-02-07 11:49] LABS: Glucose Point of Care 94 mg/dl (65-105)
[2022-02-07 13:44] VITALS: BP 118/95; PULSE 101; RESP 16; TEMP 36.2; O2SAT 94
[2022-02-07 16:37] LABS: Glucose Point of Care 108 mg/dl (65-105)
[2022-02-07] MEDS: MAGNESIUM SULF 4 GM/WATER100ML 4 GM/100 ML BAG IVPB (17:34)
[2022-02-07 20:00] VITALS: BP 118/95; PULSE 101; PULSE 74; RESP 16; O2SAT 94
[2022-02-07] MEDS: ATORVASTATIN 40 MG TABLET 80 MG PO (21:04)
[2022-02-07 21:40] LABS: Glucose Point of Care 97 mg/dl (65-105)
[2022-02-07 22:00] VITALS: BP 129/70; PULSE 59; RESP 18; TEMP 36.6; O2SAT 100
[2022-02-08] MEDS: LORazepam INJ (*CRX) 2 MG/ML VIAL 1 MG IV PUSH (03:32)
[2022-02-08 06:00] VITALS: BP 121/98; PULSE 55; RESP 18; TEMP 35.9; O2SAT 100
[2022-02-08 06:56] LABS: Basophils Absolute Auto 0.1 K/mm3 (0.0-0.1); Eosinophils Absolute Auto 0.2 K/mm3 (0-0.3); Eosinophils Percent Auto 3.9 % (0-4.4); Hemoglobin 10.4 g/dL (14.0-18.0); Immature Granulocyte Absolute 0.02 K/mm3 (0.00-0.031); Immature Granulocyte Percent A 0.4 % (0-0.5); Lymphocytes Absolute Auto 1.37 K/mm3 (0.9-3.2); Lymphocytes Percent Auto 26.4 % (18.3-44.2); Mean Corpuscular HGB Conc 32.5 g/dl (32-36); Mean Corpuscular Hemoglobin 31.6 pg (26-34); Mean Corpuscular Volume 97.3 fl (80-100); Mean Platelet Volume 9.7 fl (7.4-10.4); Monocytes Absolute Auto 0.8 K/mm3 (0.1-0.6); Monocytes Percent Auto 14.8 % (2.6-8.5); Neutrophils Absolute Auto 2.8 K/mm3 (1.3-6.7); Neutrophils Percent Auto 53.5 % (45.5-73.1); Platelet Count Result 306 k/mm3 (150-375); Red Blood Count 3.29 M/mm3 (4.6-6.20); Red Cell Distribution Width 15.1 % (11.5-14.5); White Blood Count 5.2 K/mm3 (4.5-10.0)
[2022-02-08 07:02] LABS: Alanine Aminotransferase 25 U/L (6-50); Albumin Level 3.7 g/dL (3.5-5.1); Alkaline Phosphatase 94 U/L (38-126); Anion Gap 7 mmol/L (8-16); Aspartate Amino Transferase 37 U/L (17-59); Bilirubin,Total 0.4 mg/dL (0.2-1.3); Blood Urea Nitrogen 8 mg/dL (9-20); Calcium 8.5 mg/dL (8.4-10.2); Carbon Dioxide 21 mmol/L (22-30); Chloride 102 mmol/L (98-107); Estimated CRCL calculation 63 ml/min; Estimated Glomerular Filt Rate > 60; Glucose 84 mg/dL (65-110); Potassium 4.5 mmol/L (3.4-5.0); Sodium 130 mmol/L (137-145)
[2022-02-08 08:00] LABS: Glucose Point of Care 77 mg/dl (65-105)
[2022-02-08] MEDS: TAMSULOSIN HCL 0.4 MG CAPSULE 0.8 MG PO (08:30)
[2022-02-08] MEDS: FOLIC ACID 1 MG TABLET PO (08:30)
[2022-02-08 08:31] VITALS: PULSE 60
[2022-02-08] MEDS: METOPROLOL SUCCINATE EXT REL 25 MG TABCR PO (08:31)
[2022-02-08] MEDS: MAGNESIUM OXIDE 200 MG TABLET PO (08:31)
[2022-02-08] MEDS: FERROUS SULFATE 324 MG TABLET PO (08:31)
[2022-02-08] MEDS: ENOXAPARIN 40 MG/0.4 ML SYRINGE SUB-Q (08:31)
[2022-02-08] MEDS: POTASSIUM CHLORIDE 20 MEQ TABLET.ER PO (08:31)
[2022-02-08] MEDS: ASPIRIN 81 MG CHEWABLE TABLET PO (08:31)
[2022-02-08] MEDS: levETIRAcetam 500 MG TABLET 1000 MG PO (08:31)
[2022-02-08] MEDS: THIAMINE HCL 100 MG TABLET PO (08:31)
[2022-02-08] MEDS: CLOPIDOGREL BISULFATE 75 MG TABLET PO (08:31)
[2022-02-08] MEDS: FAMOTIDINE 20 MG TABLET PO (08:31)
--- NOTE | 2022-02-08 09:53 | PM.DS ---
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 No evidence of CVA by MRI. He was diagnosed with seizures and discharged home on Keppra. Patient presented back to an outside hospital for recurrent seizures/status epilepticus. He denies alcohol use. He has been compliant with his Keppra. He received Ativan IV as well as Keppra IV and transferred back to [place]. Recovering as expected. Continue Keppra at higher dose but will change to oral route. suspect etiology to breakthrough seizure 2/2 low magnesium from ?PPI, stop protonic, continue to replete and monitor magnesium levels, start pepcid, anticipate full recovery (2) Seizure: Code(s): R56.9 - Unspecified convulsions Status: Acute Assessment and Plan: New onset. Not related to withdrawal since no alcohol since last admission. 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 (4) ARMINDA (acute kidney injury): Code(s): N17.9 - Acute kidney failure, unspecified Status: Acute Assessment and Plan: resolved (5) Metabolic acidosis: Code(s): E87.20 - Acidosis, unspecified Status: Acute Assessment and Plan: resolved (6) Hyponatremia: Code(s): E87.1 - Hypo-osmolality and hyponatremia Status: Acute Assessment and Plan: improving (7) Hypokalemia: Code(s): E87.6 - Hypokalemia Status: Acute Assessment and Plan: resolved, mag low, replete and recheck (8) Alcoholism: Code(s): F10.20 - Alcohol dependence, uncomplicated Status: Acute Assessment and Plan: Family states patient drinks 2-3 alcohol drinks per night and sometimes more. Patient's last alcoholic drink was 1 week ago. Continue thiamine and folate. Continue CIWA protocol. Educated about the benefit of abstaining from alcohol. CIWA = 3 this morning. (9) CAD (coronary artery disease): Code(s): I25.10 - Atherosclerotic heart disease of [place] coronary artery without angina pectoris Status: Acute Assessment and Plan: Patient has a history of coronary disease. Continue Toprol, ASA, plavix and lipitor (10) HTN (hypertension): Code(s): I10 - Essential (primary) hypertension Status: Acute Assessment and Plan: Blood pressure noted. Home meds resumed. Will follow for now. (11) Smoker: Code(s): F17.200 - Nicotine dependence, unspecified, uncomplicated Status: Acute Assessment and Plan: Patient was educated about the benefits of smoking cessation. (12) Hypomagnesemia: Code(s): E83.42 - Hypomagnesemia Status: Acute Assessment and Plan: Resolving, replete again today, anticipate discharge home tomorrow on oral magnesium Plan Rhabdomyolysis - related to seizures/status. Levels trending down. Follow. Anemia - Hgb noted. Iron studies consistent iron deficiency. Iron supplement started. Check stool guaiac. DVT prophylaxis with SCDs GI prophylaxis not indicated Code status full code DS: Summary Hospital Course Hospital Course: 77yo male with history of CAD, GERD, BPH, HTN, gout, possible CVA and seizures transferred from an outside hospital for status epilepticus. Reyna was hospitalized here of on 01/28/22 for left sided weakness. He had hypokalemia. Head and Neck CTA showing
[2022-02-08 10:12] LABS: Magnesium 2.1 mg/dL (1.6-2.3)
[2022-02-08 11:59] LABS: Glucose Point of Care 80 mg/dl (65-105)
--- NOTE | 2022-02-08 12:11 | WPDNEUROPN ---
Subjective Date/time seen: 02/08/22 12:11 Interval history: 77 years old right-handed male initially seen by Dr. Her with ongoing diagnosis of 1. Coronary artery disease 2. GERD 3. Benign prostatic hypertrophy 4. Hypertension 5. Hyperlipidemia 6. Presenting complaint of status epilepticus with breakthrough seizure, patient has been receiving Keppra 1000 mg twice a day, routine lab studies are fairly normal except him being anemic and hyponatremia in addition to hematuria as well. All the cultures of urine and blood are negative And is saccular in shape involving the anterior communicating artery, repeat CT scan of the head is negative. He will remain on Keppra on discharge 1000 mg twice a day and needs to follow-up with a neurologist for the documented aneurysm though it is small at this particular time for any surgical intervention but patient needs to be aware of that. Objective Data Vital Signs Vital Signs: Vital Signs - 24 hr 02/07/22 13:44 02/07/22 20:00 02/07/22 20:00 Temperature 36.2 C L Pulse Rate 101 H 101 H Pulse Rate [Monitor] 74 Respiratory Rate 16 16 Blood Pressure 118/95 H 118/95 H Pulse Oximetry 94 94 Oxygen Delivery Room Air 02/07/22 22:00 02/08/22 06:00 02/08/22 08:31 Temperature 36.6 C 35.9 C L Pulse Rate 59 L 55 L 60 Pulse Rate [Monitor] Respiratory Rate 18 18 Blood Pressure 129/70 121/98 H Pulse Oximetry 100 100 Oxygen Delivery 02/08/22 08:00 Temperature Pulse Rate Pulse Rate [Monitor] Respiratory Rate Blood Pressure Pulse Oximetry Oxygen Delivery Room Air Intake/Output Intake/Output: Intake & Output 02/05/22 02/06/22 02/07/22 02/08/22 23:59 23:59 23:59 23:59 Intake Total 2080 3660 2740 860 Output Total 2450 1875 2200 1200 Balance -370 1785 540 -340 Meds/Results Medications: Active Medications Generic Name Dose Route Start Last Admin Trade Name Freq PRN Reason Stop Dose Admin Acetaminophen 650 mg 02/05/22 09:11 02/05/22 10:02 Acetaminophen 325 Mg Tablet PO 650 mg Q6H PRN Administration Pain 1-3 Aspirin 81 mg 02/04/22 12:55 02/08/22 08:31 Aspirin 81 Mg Chewable Tablet PO 03/06/22 12:54 81 mg DAILY RASHAD Administration Atorvastatin Calcium 80 mg 02/04/22 21:00 02/07/22 21:04 Atorvastatin 40 Mg Tablet PO 80 mg HS RASHAD Administration Clopidogrel Bisulfate 75 mg 02/04/22 12:55 02/08/22 08:31 Clopidogrel Bisulfate 75 Mg Tablet PO 75 mg DAILY RASHAD Administration Enoxaparin Sodium 40 mg 02/05/22 09:00 02/08/22 08:31 Enoxaparin 40 Mg/0.4 Ml Syringe SUB-Q 40 mg DAILY RASHAD Administration Famotidine 20 mg 02/07/22 09:20 02/08/22 08:31 Famotidine 20 Mg Tablet PO 20 mg Q12HR RASHAD Administration Ferrous Sulfate 324 mg 02/05/22 08:00 02/08/22 08:31 Ferrous Sulfate 324 Mg Tablet PO 324 mg TIDWM RASHAD Administration Folic Acid 1 mg 02/06/22 09:00 02/08/22 08:30 Folic Acid 1 Mg Tablet PO 1 mg DAILY RASHAD Administration Levetiracetam 1,000 mg 02/05/22 21:00 02/08/22 08:31 Levetiracetam 500 Mg Tablet PO 1,000 mg Q12HR [facility] Administration Lorazepam 1 mg 02/03/22 10:54 02/08/22 03:32 Lorazepam Inj (*Crx) 2 Mg/Ml Vial IV PUSH 1 mg Q6H PRN Administration seizure or CIWA > 18 Magnesium Oxide 200 mg 02/04/22 21:00 02/08/22 08:31 Magnesium Oxide 200 Mg Tablet PO 200 mg Q12HR RASHAD Administration Metoprolol Succinate 25 mg 02/04/22 12:55 02/08/22 08:31 Metoprolol Succinate Ext Rel 25 Mg Tabcr PO 25 mg DAILY [facility] Administration Miconazole Nitrate 1 applic 02/06/22 14:00 02/08/22 08:33 Miconazole 2% Antifungal Ointment 56 Gm TOPICAL 1 applic Q12HR [facility] Administration Potassium Chloride 20 meq 02/05/22 17:00 02/08/22 08:31 Potassium Chloride 20 Meq Tablet.Er PO 20 meq BIDWM RASHAD Administration Tamsulosin HCl 0.8 mg 02/05/22 09:00 02/08/22 08:30 Tamsulosin Hcl 0.4 Mg Capsule PO 0.8 mg DAILY [facility] Admi
[2022-02-08 14:00] VITALS: BP 146/68; PULSE 62; RESP 22; TEMP 36; O2SAT 99
[2022-02-08 16:33] LABS: Glucose Point of Care 95 mg/dl (65-105)
== END 2022-02-08 17:00 | disposition home or self-care (01) | DRG 641 ==
LOC: ANHIMU 02-05 15:52 → ANH3MEDSUR 02-06 13:10
PROVIDERS: Internal Medicine; Admitting Provider Student in an Organized Health Care Education/Training Program; Visit Provider Student in an Organized Health Care Education/Training Program
DX: E83.42 Hypomagnesemia (principal); N17.9 Acute kidney failure, unspecified; E87.20 Acidosis, unspecified; E87.1 Hypo-osmolality and hyponatremia; G40.901 Epilepsy, unspecified, not intractable, with status epilepticus; E87.6 Hypokalemia; D50.9 Iron deficiency anemia, unspecified; I25.10 Atherosclerotic heart disease of native coronary artery without angina pectoris; I10 Essential (primary) hypertension; I67.1 Cerebral aneurysm, nonruptured; E78.5 Hyperlipidemia, unspecified; K21.9 Gastro-esophageal reflux disease without esophagitis; N40.0 Benign prostatic hyperplasia without lower urinary tract symptoms; M10.9 Gout, unspecified; F17.210 Nicotine dependence, cigarettes, uncomplicated; F10.20 Alcohol dependence, uncomplicated; Z86.73 Personal history of transient ischemic attack (TIA), and cerebral infarction without residual deficits; Z79.02 Long term (current) use of antithrombotics/antiplatelets; Z95.5 Presence of coronary angioplasty implant and graft
CPT/HCPCS: 36415; 36600; 70450; 71045; 80053; 80069; 81001; 82274; 82550; 82607; 82728; 82746; 82805; 82948; 83540; 83550; 83735; 84100; 84132; 85025; 85027; 87086; 92610; 97110; 97116; 97161; 97166; 97530; 97535; A9270; C9113; J1650; J1953; J2060; J3411; J3475; J3480; J7040; J7042; J7060

== ENCOUNTER 2022-05-30 18:34 | Emergency (ER) | payer MEDICARE, OTHER, SELFPAY ==
--- NOTE | ~2022-05-30 | CT_ITS ---
EXAMINATION: CT brain wo con DATE: 05/30/2022 19:43 INDICATION: ACUTE LEFT SIDED TREMORS THIS AFTERNOON. . TECHNIQUE: Computed tomography (CT) of the head was performed without intravenous contrast. The mA wa s adjusted according to patient size. Iterative reconstruction technique was employed. The dose-lengt h product was 681.00 mGy-cm. COMPARISON: 02/05/2022. FINDINGS: No acute intracranial hemorrhage or extra-axial fluid collection. No hydrocephalus, mass, or herniation. No acute ischemic infarct. Unremarkable dural venous sinus attenuation. No acute osseous abnormality. Trace right mastoid fluid. Bilateral inferior frontal ethmoid and right maxillary mucosal thickening. Aerated secretions in the right maxillary sinus. aerated spaces are clear. Moderate atrophy and mild chronic white matter change. Atherosclerotic intracranial calcification. Bi lateral lens replacements. IMPRESSION: No acute intracranial process. Right maxillary sinus findings may represent acute sinusitis in the ap propriate clinical context. Reviewed, dictated and finalized at location K. IMPRESSION: No acute intracranial process. Right maxillary sinus findings may represent acu te sinusitis in the appropriate clinical context.
[2022-05-30 18:34] VITALS: BP 141/74; PULSE 110; RESP 22; TEMP 37; O2SAT 97
[2022-05-30 18:40] VITALS: PULSE 101
--- NOTE | 2022-05-30 18:40 | ED.NEUROSD ---
HPI - Neuro Symptoms/Deficit General Chief Complaint: Unspecified Stated Complaint: Tremors Time Seen by Provider: 05/30/22 18:40 Source: patient, EMS and RN notes reviewed Mode of arrival: EMS Limitations: no limitations History of Present Illness HPI Narrative: Patient states that he normally has tremors on left side of his body . This has happened in the past. He went to [place] in March of this year saw neurology. The physicians were able to get his tremors under control with Keppra. His girlfriend states that shortly after the tremor started this evening she gave him his evening dose of Keppra and the tremors went away but then they came back. Patient is alert and oriented all during these episodes but has significant tremors or fasciculations on the left side of his body. he complains of pain in his left side due to these harsh tremors from her shoulder all the way down to his lower leg. Onset (ago): hour(s) (2.5) Location: left arm and left leg History of same: Yes Severity: moderate Quality: constant (tremors) Relieving factors: none Exacerbating factors: none Context: sudden onset On Anticoagulants: Yes ( Plavix and aspirin) Associated symptoms: denies other symptoms Treatments Prior to Arrival: none Related Data Home Medications Medication Instructions Recorded Confirmed allopurinol 300 mg tablet 300 mg PO DAILY 01/28/22 05/30/22 atorvastatin 80 mg tablet 80 mg PO HS 01/28/22 05/30/22 clopidogrel 75 mg tablet 75 mg PO DAILY 01/28/22 05/30/22 metoprolol succinate 50 mg 25 mg PO DAILY 01/28/22 05/30/22 tablet,extended release 24 hr tamsulosin 0.4 mg capsule 0.8 mg PO DAILY 01/28/22 05/30/22 aspirin 81 mg tablet 81 mg PO DAILY 01/29/22 05/30/22 amlodipine 10 mg tablet (Norvasc) 10 mg PO DAILY 05/30/22 05/30/22 fluticasone propionate 50 1 spray intranasal DAILY 05/30/22 05/30/22 mcg/actuation nasal spray,suspension (24 Hour Allergy Relief) nitroglycerin 0.4 mg sublingual 0.4 mg sublingual PRN 05/30/22 05/30/22 tablet (Nitrostat) Allergies Allergy/AdvReac Type Severity Reaction Status Date / Time Penicillins Allergy Unknown Verified 01/28/22 21:04 Review of Systems Review of Systems: All systems reviewed & are unremarkable except as noted in HPI and below PMFSH Past Medical History Medical History BPH (benign prostatic hyperplasia) Coronary artery disease CVA (cerebral vascular accident) GERD (gastroesophageal reflux disease) Gout Hyperlipidemia Hypertension Surgical History Surgical History Stented coronary artery Family History Family History Other Unknown family medical history Social History Social History (Updated 05/31/22 @ 01:34 by Baljit Posada MD) Smoking packs per day: 1 Smoking cigarettes per day: 20.0 Smoking status: Current every day smoker Alcohol intake: former Drinks per week: 28 Alcohol use details: 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 Substance use: never Substance use type: does not use Spiritual care concerns: No Exam Const: General: no acute distress, alert and ill appearing chronically Nutritional Appearance: well nourished Orientation/consciousness: patient oriented x3 Limitations: no limitations HENMT: Head: normal to inspection Ears: external ears normal Face/Nose/Sinus: Normal external nose present Face and sinus: normal facial exam Mouth: Yes moist mucous membranes Eyes: Conjunctivae: conjunctivae normal Pupils: Equal, round and reactive pupils present EOM: EOMs intact bilaterally Neck: Neck: normal visual inspection Resp: Effort & Inspection: normal respiratory effort Auscultation: clear to auscultation bilaterally Cardio: Rate: regular rate Rhythm: regular rhythm GI: GI Palp: Yes Sof
[2022-05-30] MEDS: LORazepam INJ (*CRX) 2 MG/ML VIAL 1 MG IV PUSH ×2 (18:53→19:12)
[2022-05-30 18:57] LABS: Basophils Absolute Auto 0.04 K/mm3 (0.00-0.10); Basophils Percent Auto 0.4 % (0.0-1.0); Eosinophils Absolute Auto 0.14 K/mm3 (0.02-0.50); Eosinophils Percent Auto 1.6 % (1.0-6.0); Hematocrit 33.8 % (37.0-46.0); Hemoglobin 11.3 g/dL (12.4-15.3); Immature Granulocyte Absolute 0.03 K/mm3 (0.00-0.00); Immature Granulocyte Percent A 0.3 % (0.0-0.0); Lymphocytes Absolute Auto 2.17 K/mm3 (1.10-4.50); Lymphocytes Percent Auto 24.2 % (18.0-42.0); Mean Corpuscular HGB Conc 33.4 g/dL (32.0-36.0); Mean Corpuscular Hemoglobin 31.4 pg (27.0-31.0); Mean Corpuscular Volume 93.9 fL (78.0-102.0); Mean Platelet Volume 9.3 fl (8.7-11.0); Monocytes Absolute Auto 0.59 K/mm3 (0.10-0.90); Monocytes Percent Auto 6.6 % (2.0-11.0); Neutrophils Percent Auto 66.9 % (50.0-70.0); Platelet Count Result 318 K/mm3 (150-420); Red Cell Distribution Width 13.6 % (11.6-14.4)
--- NOTE | 2022-05-30 19:05 | PC.NURSE ---
report to leyda willis. no questions or concerns.
[2022-05-30 19:12] LABS: Alanine Aminotransferase 22 U/L (16-63); Albumin Level 3.2 g/dL (3.4-5.0); Alkaline Phosphatase 118 U/L (46-116); Anion Gap 20 mmol/L (8-16); Aspartate Amino Transferase 16 U/L (15-37); Bilirubin,Total 0.2 mg/dL (0.00-1.00); Blood Urea Nitrogen 7 mg/dL (7-18); Calcium 9.7 mg/dL (8.5-10.1); Carbon Dioxide 18 mmol/L (21-32); Chloride 103 mmol/L (98-108); Estimated CRCL calculation 47 ml/min; Estimated Glomerular Filt Rate > 60; Ethanol 3 mg/dL (0-6); Glucose 126 mg/dL (70-99); Osmolality Calculated 292 mOsm/kg (285-295); Potassium 4.6 mmol/L (3.5-5.1); Sodium 141 mmol/L (136-145); Total Protein 7.4 g/dL (6.4-8.2)
[2022-05-30] MEDS: levETIRAcetam 500MG/NACL 100ML 500 MG/100 ML BAG 400 MG IVPB (20:27)
[2022-05-30 20:38] VITALS: BP 131/81; PULSE 64; RESP 20; TEMP 36.7; O2SAT 100
[2022-05-30] MEDS: KETOROLAC 30 MG/ML VIAL (*BKC) IV PUSH (20:48)
[2022-05-31] VITALS (27 sets, daily range): BP systolic 111–135; BP diastolic 67–89; PULSE 63–88; RESP 20; TEMP 36.7; O2SAT 96–100
== END 2022-05-31 07:01 | disposition home or self-care (01) ==
PROVIDERS: Emergency Provider Emergency Medicine; PCP Family Medicine
DX: R25.1 Tremor, unspecified (principal); I25.10 Atherosclerotic heart disease of native coronary artery without angina pectoris; E78.5 Hyperlipidemia, unspecified; I10 Essential (primary) hypertension; F17.210 Nicotine dependence, cigarettes, uncomplicated; Z79.82 Long term (current) use of aspirin; Z86.73 Personal history of transient ischemic attack (TIA), and cerebral infarction without residual deficits; Z79.899 Other long term (current) drug therapy
CPT/HCPCS: 36415; 70450; 80053; 80307; 85025; 96365; 96375; 99284; J1885; J1953; J2060

== ENCOUNTER 2022-12-05 07:57 | Outpatient (CLI) | payer MEDICARE, MEDICAID, SELFPAY ==
--- NOTE | ~2022-12-05 | US_ITS ---
EXAMINATION: US retroperitoneal duplex ltd DATE: 12/05/2022 10:12 CDT INDICATION: Renal artery aneurysm TECHNIQUE: Sonographic imaging of the kidneys was performed with a 3.5 MHz transducer. Retroperitone al duplex sonogram of the renal arteries also obtained. FINDINGS: No focal flow abnormalities are seen in the renal arteries on color Doppler. The peak syst olic velocity ranges of the right and left renal arteries and aorta are 1:30 cm per second, 147 cm pe r second, and 56 cm per second, respectively. The velocities and renal to aortic ratios are within no rmal limits. There is a left renal cyst measuring 10.8 cm. IMPRESSION: 1. No Doppler evidence of renal artery stenosis. 2: Left renal cyst measuring 10.8 cm. Reviewed, dictated and finalized at location B.
[2022-12-05 08:59] LABS: Magnesium 1.9 mg/dL (1.8-2.4)
== END 2022-12-05 07:58 | disposition home or self-care (01) ==
LOC: CHSIMG 08:00
PROVIDERS: PCP Family Medicine; Visit Provider Family Medicine
DX: I72.2 Aneurysm of renal artery (principal); G40.909 Epilepsy, unspecified, not intractable, without status epilepticus; N28.1 Cyst of kidney, acquired
CPT/HCPCS: 36415; 83735; 93976

== ENCOUNTER 2024-12-19 10:44 | Emergency (ER) | payer MEDICARE, MEDICAID, SELFPAY ==
[2024-12-19 10:44] VITALS: BP 139/88; PULSE 59; RESP 16; TEMP 36.6; O2SAT 97
--- NOTE | 2024-12-19 10:47 | ECG_ITS ---
Test Date: 2024-12-19 10:55:45 Measurements Intervals Rawlings Rate: 53 P: 76 ND: 167 QRS: 265 QRSD: 142 T: 35 QT: 423 QTc: 400 Interpretive Statements SINUS BRADYCARDIA RIGHT AXIS DEVIATION RIGHT BUNDLE BRANCH BLOCK BASELINE ARTIFACT- I, II, III, AVR, AVL, AVF, V1-V6 ABNORMAL ECG No previous ECG available for comparison Electronically Signed On 12-19-2024 15:53:40 CDT by Don Silvestre D.O.
[2024-12-19 11:12] LABS: Hematocrit 35.3 % (42.0-52.0); Hemoglobin 12.1 g/dL (14.0-18.0); Immature Granulocyte Percent A 0.5 % (0-0.5); Lymphocytes Absolute Auto 1.98 K/mm3 (0.9-3.2); Mean Corpuscular HGB Conc 34.3 g/dl (32-36); Mean Corpuscular Hemoglobin 34.3 pg (26-34); Mean Corpuscular Volume 100.0 fl (80-100); Nucleated Red Blood Cells Absolute Auto 0.000 K/mm3 (0.0-0.012); Nucleated Red Blood Cells Perc 0.0 % (0.0-0.2); Platelet Count Result 358 k/mm3 (150-375); Red Blood Count 3.53 M/mm3 (4.6-6.20); White Blood Count 6.7 K/mm3 (4.5-10.0)
[2024-12-19 11:31] VITALS: BP 155/73; PULSE 52; RESP 20
[2024-12-19 11:36] LABS: Alanine Aminotransferase 28 U/L (6-50); Albumin Level 3.7 g/dL (3.5-5.1); Alkaline Phosphatase 133 U/L (38-126); Anion Gap 7 mmol/L (4-12); Aspartate Amino Transferase 29 U/L (17-59); Bilirubin,Total 0.3 mg/dL (0.2-1.3); Blood Urea Nitrogen 18 mg/dL (9-20); Calcium 8.9 mg/dL (8.4-10.2); Carbon Dioxide 28 mmol/L (22-30); Chloride 95 mmol/L (98-107); Estimated CRCL calculation 62 ml/min; Estimated Glomerular Filt Rate > 60; Glucose 78 mg/dL (65-110); Potassium 3.8 mmol/L (3.4-5.0); Sodium 130 mmol/L (137-145); Total Protein 6.9 g/dL (6.3-8.2)
[2024-12-19 11:43] LABS: Troponin I < 0.012 ng/mL (0.000-0.034)
[2024-12-19 11:46] VITALS: BP 168/78; PULSE 61; RESP 22
[2024-12-19 12:00] VITALS: BP 161/79; PULSE 56; RESP 20; O2SAT 100
[2024-12-19 12:17] VITALS: BP 161/79; PULSE 59; RESP 20; O2SAT 100
--- NOTE | 2024-12-19 13:37 | ED.RECABL ---
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 Denies any chest pain, shortness of breath, lightheadedness, or any symptoms whatsoever. Had been found to have heart rate in the 30s this morning, but recheck was normal in the 60s, patient asymptomatic this entire time. History of prior stent years ago. Related Data Home Medications ?Medication ?Instructions ?Recorded ?Confirmed ?Last Taken ?Type allopurinol 300 mg tablet 300 mg PO DAILY 01/28/22 12/10/24 05/30/22 History clopidogrel 75 mg tablet 75 mg PO DAILY 01/28/22 12/10/24 05/30/22 History Held on 12/10/24. Instructions: Start 12/29 tamsulosin 0.4 mg capsule 0.4 mg PO BID 01/28/22 12/10/24 12/10/24 09:45 History aspirin 81 mg tablet 81 mg PO DAILY 01/29/22 12/10/24 05/30/22 History amlodipine 10 mg tablet (Norvasc) 10 mg PO DAILY 05/30/22 12/10/24 12/10/24 09:25 History fluticasone propionate 50 1 spray intranasal DAILY 05/30/22 12/10/24 12/10/24 09:35 History mcg/actuation nasal spray,suspension (24 Hour Allergy Relief) nitroglycerin 0.4 mg sublingual 0.4 mg sublingual PRN 05/30/22 12/10/24 Unknown History tablet (Nitrostat) acetaminophen 500 mg tablet 500 mg PO Q6H PRN pain 12/10/24 12/10/24 12/09/24 03:10 History atorvastatin 20 mg tablet 20 mg PO HS 12/10/24 12/10/24 12/09/24 20:40 History eftfizg-umilxzxxo-actl 333 mg-133 1 tablet PO DAILY 12/10/24 12/10/24 Unknown History mg-5 mg tablet carvedilol 3.125 mg tablet 3.125 mg PO BID 12/10/24 12/10/24 12/10/24 09:25 History diclofenac sodium 1 % topical gel 1 ea topical QID PRN pain 12/10/24 12/10/24 Unknown History finasteride 5 mg tablet 5 mg PO DAILY 12/10/24 12/10/24 Unknown History fluoxetine 10 mg tablet 10 mg PO DAILY 12/10/24 12/10/24 Unknown History folic acid 1 mg tablet 1 mg PO DAILY 12/10/24 12/10/24 Unknown History lacosamide 200 mg tablet 200 mg PO Q12H 12/10/24 12/10/24 12/10/24 09:30 History levetiracetam 750 mg tablet 750 mg PO BID 12/10/24 12/10/24 12/10/24 09:35 History magnesium 250 mg tablet 250 mg PO DAILY 12/10/24 12/10/24 Unknown History multivitamin,tx-minerals 1 tablet PO DAILY 12/10/24 12/10/24 12/10/24 09:25 History naloxone 4 mg/actuation nasal 1 spray intranasal Q2-3M PRN 12/10/24 12/10/24 Unknown History spray (Narcan) opioid overdose omeprazole 40 mg capsule,delayed 40 mg PO DAILY 12/10/24 12/10/24 Unknown History release oxycodone 5 mg tablet 5 mg PO Q6H PRN pain 4-7 12/10/24 12/10/24 12/10/24 02:25 History phenytoin sodium extended 100 mg 100 mg PO QAM 12/10/24 12/10/24 Unknown History capsule phenytoin sodium extended 100 mg 300 mg PO QPM 12/10/24 12/10/24 12/10/24 06:55 History capsule thiamine HCl (vitamin B1) 100 mg 100 mg PO DAILY 12/10/24 12/10/24 Unknown History tablet Allergies Allergy/AdvReac Type Severity Reaction Status Date / Time Penicillins Allergy Unknown Verified 12/19/24 11:16 Review of Systems Review of Systems: All systems reviewed & are unremarkable except as noted in HPI and below PMFSH Past Medical History Medical History BPH (benign prostatic hyperplasia) Coronary artery disease CVA (cerebral vascular accident) GERD (gastroesophageal reflux disease) Gout Hyperlipidemia Hypertension Surgical History Surgical History Stented coronary artery Family History Family History Other Unknown family medical history Social History Social History (Updated 05/31/22 @ 01:34 by Baljit Posada, ) Smoking packs per day: 1 Smoking cigarettes per day: 20.0 Smoking status: Current every day smoker Tobacco type: cigarettes Alcohol intake: former Drinks per week: 28 Alcohol use details: 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 Substance use: never Substance use type: does not use Lack of Transportation: No Lack of Food: Never True Current Housing: I Have Housing Concerned About Future Housing: No Difficulty Paying Gas/Electric Bills: No Difficulty Paying for Meds: No Currently Unemployed: No Education: Associate Degree Difficulty w/ Childcare or Family Care: No Spiritual care concerns: No Exam Narrative: EXAMINATION OF ORGAN SYSTEMS/BODY AREAS: Constitutional: Vital signs per nursing GENERAL:[No acute distress, non-toxic appearing.] HEAD: Normal with no signs of head trauma. EYES: EOMI, conjunctiva normal ENT: Hearing grossly intact LUNGS: Nonlabored breathing. HEART: Neurally bradycardic ABD: [Soft], [nontender to palpation] EXT: Normal range of motion SKIN: [No rashes or lesions.] NEURO: [Alert and oriented x 3. Speaking with clear speech.] PSYCH: Normal affect Course Vital Signs Vital signs: Vital Signs Temperature 97.9 F 12/19/24 10:44 Pulse Rate 59 L 12/19/24 10:44 Respiratory Rate 16 12/19/24 10:44 Blood Pressure 139/88 12/19/24 10:44 Pulse Oximetry 97 12/19/24 10:44 Oxygen Delivery Room Air 12/19/24 10:44 Temperature 97.9 F 12/19/24 10:44 Pulse Rate 59 L 12/19/24 12:17 Respiratory Rate 20 12/19/24 12:17 Blood Pressure 161/79 H 12/19/24 12:17 Pulse Oximetry 100 12/19/24 12:17 Oxygen Delivery Room Air 12/19/24 10:44 MDM - Recheck/Abnormal Lab/Rx MDM Narrative Medical decision making narrative: Patient presenting with asymptomatic bradycardia. Denies any concerning or red flag symptoms. He states he feels great. Given his heart history, I did obtain cardiac workup which is negative. EKG - 12-Lead: Performed at 1055. Interpreted by me. Sinus bradycardia with right bundle-branch block. Rate 53. Left axis. NE-interval [normal]. QRS duration 142. QTc [normal]. [No ST segment elevation or depression]. Impression: No EKG evidence of acute ischemia or dysrhythmia. I am unable to view his prior EKG but the EKG report from 2021 seems similar. Patient continues to deny any symptoms. Vital signs within acceptable limits. At this point I do feel he is stable for discharge with close follow-up to delivery man. Patient agreeable to plan. Lab Data 12/19/24 10:59 12/19/24 10:59 Labs: Lab Results 12/19/24 Range/Units 10:59 WBC 6.7 (4.5-10.0) K/mm3 RBC 3.53 L (4.6-6.20) M/mm3 Hgb 12.1 L (14.0-18.0) g/dL Hct 35.3 L (42.0-52.0) % MCV 100.0 (80-100) fl MCH 34.3 H (26-34) pg MCHC 34.3 (32-36) g/dl RDW 13.3 (11.5-14.5) % Plt Count 358 (150-375) k/mm3 MPV 8.2 (7.4-10.4) fl Immature Gran % (Auto) 0.5 (0-0.5) % Neut % (Auto) 55.9 (45.5-73.1) % Lymph % (Auto) 29.7 (18.3-44.2) % [place] % (Auto) 11.3 H (2.6-8.5) % Eos % (Auto) 2.0 (0-4.4) % Baso % (Auto) 0.6 (0.2-1.2) % Lymph # (Auto) 1.98 (0.9-3.2) K/mm3 [place] # (Auto) 0.8 H (0.1-0.6) K/mm3 Eos # (Auto) 0.1 (0-0.3) K/mm3 Baso # (Auto) 0.0 (0.0-0.1) K/mm3 Abs Immat Gran (auto) 0.03 (0.00-0.031) K/mm3 Absolute Neuts (auto) 3.7 (1.3-6.7) K/mm3 Absolute Nucleated RBC 0.000 (0.0-0.012) K/mm3 Nucleated RBC % 0.0 (0.0-0.2) % Sodium 130 L (137-145) mmol/L Potassium 3.8 (3.4-5.0) mmol/L Chloride 95 L (98-107) mmol/L Carbon Dioxide 28 (22-30) mmol/L Anion Gap 7 (4-12) mmol/L BUN 18 (9-20) mg/dL Creatinine 0.77 (0.7-1.3) mg/dL Estim Creat Clear Calc 62 ml/min Estimated GFR > 60 (59 - ) Glucose 78 (65-110) mg/dL Calcium 8.9 (8.4-10.2) mg/dL Total Bilirubin 0.3 (0.2-1.3) mg/dL AST 29 (17-59) U/L ALT 28 (6-50) U/L Alkaline Phosphatase 133 H (38-126) U/L Troponin I < 0.012 (0.000-0.034) ng/mL Total Protein 6.9 (6.3-8.2) g/dL Albumin 3.7 (3.5-5.1) g/dL Discharge Plan Discharge Clinical Impression: Bradycardia Patient Disposition: Inpatient Rehab Facility Condition: Stable Instructions: Bradycardia (ED) Additional Instructions: Please follow up with the delivery man; if you start having any lightheadedness, or chest pain or shortness of breath, or anything else concerning, please return to the emergency room immediately. Patient Language: [place] Prescriptions: No Action clopidogrel 75 mg Tablet 75 mg PO DAILY tamsulosin 0.4 mg Capsule 0.4 mg PO BID allopurinol 300 mg Tablet 300 mg PO DAILY amlodipine [Norvasc] 10 mg tablet 10 mg PO DAILY nitroglycerin [Nitrostat] 0.4 mg tablet, sublingual 0.4 mg sublingual PRN fluticasone propionate [24 Hour Allergy Relief] 50 mcg/actuation spray,suspension 1 spray INTRANASAL DAILY aspirin 81 mg Tablet 81 mg PO DAILY Rx Instructions: start 10/3 carvedilol 3.125 mg tablet 3.125 mg PO BID Rx Instructions: must administer with a meal/food levetiracetam 750 mg tablet 750 mg PO BID naloxone [Narcan] 4 mg/actuation spray,non-aerosol 1 spray intranasal Q2-3M PRN (Reason: opioid overdose) Rx Instructions: spray 1 dose into ONE nostril; alternate nostrils w each dose until help arrives oxycodone 5 mg tablet 5 mg PO Q6H PRN (Reason: pain 4-7) lacosamide 200 mg tablet 200 mg PO Q12H phenytoin sodium extended 100 mg capsule 300 mg PO QPM phenytoin sodium extended 100 mg capsule 100 mg PO QAM acetaminophen 500 mg tablet 500 mg PO Q6H PRN (Reason: pain) atorvastatin 20 mg tablet 20 mg PO HS [id number] 333-133-5 mg tablet 1 tablet PO DAILY diclofenac sodium 1 % gel 1 ea topical QID PRN (Reason: pain) finasteride 5 mg tablet 5 mg PO DAILY fluoxetine 10 mg tablet 10 mg PO DAILY folic acid 1 mg tablet 1 mg PO DAILY magnesium 250 mg tablet 250 mg PO DAILY multivitamin,tx-minerals Tablet 1 tablet PO DAILY omeprazole 40 mg capsule,delayed release(DR/EC) 40 mg PO DAILY thiamine HCl (vitamin B1) 100 mg tablet 100 mg PO DAILY Follow-up/Referrals: Marisa,Christine Acosta MD [Primary Care Provider, Unknown] Melo Nguyen MD [Physician, Cardiology] - 2 Days
== END 2024-12-19 13:00 ==
PROVIDERS: Emergency Provider Emergency Medicine; PCP Family Medicine
DX: R00.1 Bradycardia, unspecified (principal); I25.10 Atherosclerotic heart disease of native coronary artery without angina pectoris; I10 Essential (primary) hypertension; E78.5 Hyperlipidemia, unspecified; M10.9 Gout, unspecified; N40.0 Benign prostatic hyperplasia without lower urinary tract symptoms; K21.9 Gastro-esophageal reflux disease without esophagitis; F17.210 Nicotine dependence, cigarettes, uncomplicated; Z95.5 Presence of coronary angioplasty implant and graft; Z86.73 Personal history of transient ischemic attack (TIA), and cerebral infarction without residual deficits; Z79.02 Long term (current) use of antithrombotics/antiplatelets; Z79.899 Other long term (current) drug therapy; Z79.82 Long term (current) use of aspirin; I45.10 Unspecified right bundle-branch block
CPT/HCPCS: 36415; 80053; 84484; 85025; 93005; 99284